=== PATIENT | male | born 1950 | race African-American/Black ===

== ENCOUNTER 2019-05-14 12:21 | Observation (INO) | payer MEDICARE ==
[~2019-05-14] VITALS: Ht 190.5 cm; Wt 125.9 kg
[2019-05-14] MEDS ORDERED: ENTRESTO 49 MG1 EACH PO (12:36)
[2019-05-14] MEDS ORDERED: ASPIRIN81 MG PO (12:36)
[2019-05-14] MEDS ORDERED: LASIX80 MG PO (12:36)
[2019-05-14] MEDS ORDERED: ISOSORBIDE MONO60 M1 PO (12:37)
[2019-05-14] MEDS ORDERED: ZOCOR40 MG PO (12:37)
[2019-05-14] MEDS ORDERED: ELIQUIS5 MG PO (12:37)
[2019-05-14 13:00] VITALS: BP 121/72
[2019-05-14 13:01] LABS: BASOPHILS 0.4 % (0-2); EOSINOPHILS 1.2 % (0-7); HEMATOCRIT 38.2 % (42.0-54.0); HEMOGLOBIN 13.2 g/dL (13.5-17.5); LYMPHOCYTES 15.2 % (15-50); MCH 28.1 pg (26.0-34.0); MCHC 34.6 g/dL (31.0-37.0); MCV 81.3 fL (80.0-100.0); MEAN PLATELET VOLUME 12.4 fL (7.4-10.4); MONOCYTES 6.9 % (2-11); NEUTROPHILS 76.3 % (40-80); PLATELET COUNT 129 10x3/uL (130-400); RDW 15.1 % (11.5-14.5); WBC 5.7 10x3/uL (4.8-10.8)
[2019-05-14 13:13] LABS: CALC OSMOLALITY 276 mosm/kg (275-300); CALCIUM 8.6 mg/dL (8.5-10.1); CARBON DIOXIDE 23.6 mmol/L (21.0-32.0); CHLORIDE - SERUM 102 mmol/L (98-107); CREATININE - SERUM 1.3 mg/dL (0.6-1.3); GLUCOSE 106 mg/dL (74-106); POTASSIUM - SERUM 3.4 mmol/L (3.5-5.1); SODIUM 138 mmol/L (136-145); UREA NITROGEN 15 mg/dL (7-18); eGFR NON AFRICAN AMERICAN 58 mL/min (90-120)
[2019-05-14 13:27] LABS: INR 1.9 (0.85-1.17); PROTIME 21.1 SECONDS (11.6-15.0)
[2019-05-14 13:28] LABS: APTT 48.6 SECONDS (22.8-39.4)
[2019-05-14 13:30] LABS: ALBUMIN 3.5 g/dL (3.4-5.0); ALKALINE PHOSPHATASE 41 U/L (46-116); ALT (SGPT) 14 U/L (10-68); BILIRUBIN - TOTAL 2.62 mg/dL (0.2-1.3); CKMB 0.9 U/L (0.0-3.6); CREATINE KINASE 187 UL (21-232); PRO BNP 2983 pg/mL (0-125); PROTEIN - SERUM 6.9 g/dL (6.4-8.2); TROPONIN-I < 0.017 ng/mL (0.000-0.060)
[2019-05-14 14:00] VITALS: BP 123/81
--- NOTE | 2019-05-14 16:00 | NUR ---
RECEIVED PT TO ROOM 2115 VIA W/C FROM ER DX CHF SALINE LOCK INTACT LT HAND SITE FREE OF REDNESS OR EDEMA TELEMETRY APPLIED SR BBB RATE 60 SL SOB NOTED PT DENIES ANY NEED OR DISCOMFORT AT THIS TIME
[2019-05-14 16:04] VITALS: BP 123/83
[2019-05-14 16:15] VITALS: BP 123/83; BMI 34.7
--- NOTE | 2019-05-14 19:11 | NUR ---
RECIEVED BEDSIDE SHIFT REPORT. ALERT AND ORIETNED X4. UP AD SULAIMAN TO B/R. IV TO LEFT HAND SL.. PACEMAKER TO LEFT CHEST. DENIES ANY NEEDS AT THIS TIME.
[2019-05-14 20:00] VITALS: BP 114/72
[2019-05-15] VITALS (7 sets, daily range): BP systolic 102–120; BP diastolic 62–85; Ht 190.5 cm; Wt 125.9 kg
[2019-05-15 05:40] LABS: ANION GAP 13.1 mmol/L (8-16); BASOPHILS 0.5 % (0-2); CALCIUM 8.6 mg/dL (8.5-10.1); CREATININE - SERUM 1.2 mg/dL (0.6-1.3); HEMATOCRIT 37.7 % (42.0-54.0); HEMOGLOBIN 12.7 g/dL (13.5-17.5); IMMATURE GRANULOCYTES 0.4 % (0-5); LYMPHOCYTES 23.4 % (15-50); MAGNESIUM - SERUM 1.9 mg/dL (1.8-2.4); MCH 28.1 pg (26.0-34.0); MCHC 33.7 g/dL (31.0-37.0); MCV 83.4 fL (80.0-100.0); MEAN PLATELET VOLUME 12.5 fL (7.4-10.4); MONOCYTES 8.6 % (2-11); NEUTROPHILS 65.1 % (40-80); PHOSPHOROUS 3.2 mg/dL (2.5-4.9); PLATELET COUNT 110 10x3/uL (130-400); POTASSIUM - SERUM 3.1 mmol/L (3.5-5.1); RBC 4.52 10x6/uL (4.20-6.10); RDW 15.3 % (11.5-14.5); WBC 5.6 10x3/uL (4.8-10.8)
--- NOTE | 2019-05-15 09:31 | NUR ---
TELEMETRY SR. TX K+ PER PROROCOL. NO C/O C/P NOTED. WILL CONT. PLAN OF CARE.
[2019-05-15 15:15] LABS: % SATURATION 28 % (15-55); IRON 69 ug/dl (35-150); TOTAL IRON BIND CAPACITY 239 ug/dl (260-445); UNSAT IRON BIND CAPACITY 170 ug/dl (150-375)
--- NOTE | 2019-05-15 15:51 | NUR ---
URINE SPECIMEN COLLECTED AND TAKEN TO LAB FOR UA. WILL MONITOR.
[2019-05-15 15:55] LABS: APPEARANCE CLEAR (CLEAR); COLOR YELLOW (YELLOW); GLUCOSE NEGATIVE (NEGATIVE); KETONE NEGATIVE (NEGATIVE); NITRITE NEGATIVE (NEGATIVE); PROTEIN NEGATIVE (NEGATIVE)
[2019-05-15 15:56] LABS: BILIRUBIN NEGATIVE (NEGATIVE)
[2019-05-15 15:57] LABS: BACTERIA FEW /hpf (NEGATIVE); RED CELLS - URINE 0-5 /hpf (0-5); WHITE CELLS - URINE OCC /hpf (NEGATIVE)
[2019-05-16 04:00] VITALS: BP 108/69
--- NOTE | 2019-05-16 06:05 | NUR ---
REHABILITATION SUPERVISOR REPORTED RUN OF V TACH EARLIER. PT ASYMPTOMATIC. AWAKE AND WATCHING TV.DENIES ANY DISCOMFORT AND STATED "I'M FEELING FINE".
--- NOTE | 2019-05-16 07:15 | NUR ---
RECIEVED PT IN BED AAOX4 RESP UNLABORED SKIN W/D COLOR WNL DENIES ANY NEEDS OR DISCOMFORT NAD NNOTED
[2019-05-16 09:00] VITALS: BP 91/52
[2019-05-16 11:46] VITALS: BP 106/58
--- NOTE | 2019-05-16 14:22 | MORECARE ---
CASE MANAGEMENT DISCHARGE SUMMARY PATIENT: ZEYNEP SKY JR UNIT: [id number] ADM DATE: 05/15/19 AGE: 69 : 52 SEX: M ROOM/BED: D.2116 AUTHOR: CARLOS EDUARDO,DOC PHYSICIAN: REFERRING PHYSICIAN: MYRON WILDE MD DATE OF SERVICE: 05/16/19 Discharge Plan Patient Name: ZEYNEP SKY [facility] [facility] 1950 Planned Disposition: Home Anticipated Discharge Date: 05/16/19 Discharge Date: Expected LOS: 1 Initial Reviewer: [email or web address] Initial Review Date: 05/16/2019 Generated: 05/16/19 3:22 pm DCP- Discharge Planning Updated by [email or web address]: Kike Damian on 05/16/19 1:[address] Patient Name: ZEYNEP SKY Admission Status: ER Accout number: [id number] Admission Date: 05-15-2019 : 1950 Admission Diagnosis: Attending: MYRON WILDE Current LOS: 1 Anticipated DC Date: 05-16-2019 Planned Disposition: Home Primary Insurance: [facility] MEDICARE SOLUTIONS Discharge Planning Comments: CM MET WITH PT IN ROOM TO DISCUSS DISCHARGE PLANNING AND NEEDS. 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 PT HAS NO MEDICAL EQUIPMENT AND NO OUTSIDE SERVICES ASSISTING IN THE HOME. CM DISCUSSED AVAILABILITY OF HOME HEALTH, REHAB SERVICES AND MEDICAL EQUIPMENT. PT DENIES DISCHARGE NEEDS, REPORTS HIS MOTHER WILL PICK HIM UP FOR DISCHARGE HOME. MAIL CLERKS SUPERVISOR NURSE NOTIFIED. Events Manager: Kike Damian DCPIA - Discharge Planning Initial Assessment Updated by [email or web address]: Kike Damian on 05/16/19 2:18 pm * Is the patient Alert and Oriented? Yes * How many steps to enter\exit or inside your home? NONE * PCP DR. WETZEL * Pharmacy [facility] [place] * Preadmission Environment Home with Family * ADLs Independent * Equipment None * Other Equipment NO MEDICAL EQUIPMENT PROVIDER PREFERENCE * List name and contact numbers for known caregivers / representatives who currently or will assist patient after discharge: JOSEFA SKY, MOTHER, * Verbal permission to speak to the caregivers and representatives has been obtained from the patient. N/A * Community resources currently utilized None * Please name any agencies selected above. NONE * Additional services required to return to the preadmission environment? No * Can the patient safely return to the preadmission environment? Yes * Has this patient been hospitalized within the prior 30 days at any hospital? No Coverage Notice Reviewer: [id number] Evan Marcelino Notice Issued Date-Time: 05/14/2019 15:01 Notice Type: Medicare Outpatient Observation Notice Notice Delivered To: Patient Relationship to Patient: Depalletizer Operator Name: Delivery Method: HAND - Hand Delivered Jessica Days: Prior Verbal Notification: Recipient Understood Notice: Recipient Signature: Med Rec Note Co-signed by Attending: Coverage Notice Comment: Patient Name: ZEYNEP SKY Page [id number] at 1422 All edits/amendments must be made on the electronic document DICTATION DATE: 05/16/191421 CARCASS SPLITTER: IVANA 05/16/191421 RPT#: [id number] DC DATE: STATUS: ADM IN [facility] [address] [place] [address] END OF REPORT
--- NOTE | 2019-05-16 15:14 | NUR ---
PT DISCHARGED. INSTRUCTIONS GIVEN AND IV DCD. TO PRIVATE CAR PER WHEELCHAIR
--- NOTE | 2019-05-17 11:58 | NUR ---
I CALLED [facility] IN [place] FOR ELIQUIS 5 MG # 60 BID.
== END 2019-05-16 15:15 | disposition home or self-care (01) ==
LOC: D.ER 12:21 → D.M2 14:41 → OBSVTIME 15:06 → D.M2 05-15 18:49
PROVIDERS: Family Medicine; ADMIT Internal Medicine Nephrology; ATTEND Internal Medicine Nephrology
DX: I11.0 Hypertensive heart disease with heart failure (principal); I50.23 Acute on chronic systolic (congestive) heart failure; D64.9 Anemia, unspecified; D69.6 Thrombocytopenia, unspecified; E87.6 Hypokalemia; E78.5 Hyperlipidemia, unspecified; I42.9 Cardiomyopathy, unspecified

== ENCOUNTER 2019-11-28 10:14 | Inpatient (IN) | payer MEDICARE ==
[~2019-11-28] VITALS: Ht 190.5 cm; Wt 134.3 kg
[~2019-11-28 10:14] MED LIST: ASPIRIN81 MG PO; ELIQUIS5 MG PO; ENTRESTO 49 MG1 EACH PO; ISOSORBIDE MONO60 M1 PO; LASIX80 MG PO; ZOCOR40 MG PO
[2019-11-28] MEDS ORDERED: TORSEMIDE20 MG PO (10:19)
[2019-11-28] MEDS ORDERED: XARELTO20 MG PO (10:21)
[2019-11-28] MEDS ORDERED: LIPITOR20 MG PO (10:21)
[2019-11-28] MEDS ORDERED: METOPROLOL TART50 MG PO (10:22)
--- NOTE | 2019-11-28 10:25 | NUR ---
BLADDER SCANNER = 163 ML
[2019-11-28 10:30] VITALS: BP 92/57
[2019-11-28 10:47] LABS: BASOPHILS 0.3 % (0-2); EOSINOPHILS 0.6 % (0-7); HEMOGLOBIN 13.9 g/dL (13.5-17.5); IMMATURE GRANULOCYTES 0.1 % (0-5); LYMPHOCYTES 10.1 % (15-50); MCH 27.5 pg (26.0-34.0); MCHC 33.1 g/dL (31.0-37.0); MEAN PLATELET VOLUME 11.8 fL (7.4-10.4); NEUTROPHILS 78.9 % (40-80); RBC 5.06 10x6/uL (4.20-6.10); RDW 16.8 % (11.5-14.5); WBC 6.8 10x3/uL (4.8-10.8)
[2019-11-28 10:52] LABS: PLATELET COUNT 176 10x3/uL (130-400)
[2019-11-28 11:00] LABS: CALC OSMOLALITY 294 mosm/kg (275-300); CALCIUM 8.6 mg/dL (8.5-10.1); CARBON DIOXIDE 22.9 mmol/L (21.0-32.0); CHLORIDE - SERUM 106 mmol/L (98-107); GLUCOSE 108 mg/dL (74-106); POTASSIUM - SERUM 3.7 mmol/L (3.5-5.1); SODIUM 142 mmol/L (136-145); UREA NITROGEN 43 mg/dL (7-18); eGFR NON AFRICAN AMERICAN 35 mL/min (90-120)
[2019-11-28 11:18] LABS: ALBUMIN 3.6 g/dL (3.4-5.0); ALKALINE PHOSPHATASE 31 U/L (30-120); ALT (SGPT) 118 U/L (10-68); BILIRUBIN - TOTAL 1.52 mg/dL (0.2-1.3); CKMB 1.3 U/L (0.0-3.6); CREATINE KINASE 95 UL (21-232); PRO BNP 7871 pg/mL (0-125); PROTEIN - SERUM 6.3 g/dL (6.4-8.2); TROPONIN-I 0.032 ng/mL (0.000-0.060)
[2019-11-28 11:19] LABS: INR 5.75 (0.85-1.17); PROTIME 50.5 SECONDS (11.6-15.0)
[2019-11-28 11:30] VITALS: BP 93/64
[2019-11-28 12:30] VITALS: BP 100/72
[2019-11-28 13:30] VITALS: BP 96/72
[2019-11-28 14:48] VITALS: BMI 35.0
[2019-11-28 18:25] LABS: CKMB 1.2 U/L (0.0-3.6); CREATINE KINASE 91 UL (21-232); TROPONIN-I 0.025 ng/mL (0.000-0.060)
--- NOTE | 2019-11-28 19:31 | NUR ---
PATIENT IS ALERT AND ORIENTED, RESTING COMFORTABLY IN BED. RESPIRATIONS ARE EVEN AND UNLABORED. NO S/S OF DISTRESS. NO C/O PAIN. CALL LIGHT WITHIN REACH. WILL CPOC.
[2019-11-28 19:47] VITALS: BP 104/69
[2019-11-28 23:17] LABS: CKMB 0.8 U/L (0.0-3.6); CREATINE KINASE 71 UL (21-232); TROPONIN-I 0.028 ng/mL (0.000-0.060)
[2019-11-29 00:26] VITALS: BP 80/51
[2019-11-29 03:57] VITALS: BP 86/59
[2019-11-29 07:21] LABS: BASOPHILS 0.3 % (0-2); EOSINOPHILS 0.8 % (0-7); HEMATOCRIT 40.7 % (42.0-54.0); HEMOGLOBIN 13.3 g/dL (13.5-17.5); IMMATURE GRANULOCYTES 0.3 % (0-5); LYMPHOCYTES 14.8 % (15-50); MCH 27.1 pg (26.0-34.0); MCHC 32.7 g/dL (31.0-37.0); MCV 82.9 fL (80.0-100.0); MONOCYTES 11.7 % (2-11); NEUTROPHILS 72.1 % (40-80); PLATELET COUNT 163 10x3/uL (130-400); RBC 4.91 10x6/uL (4.20-6.10); RDW 16.8 % (11.5-14.5); WBC 7.4 10x3/uL (4.8-10.8)
[2019-11-29 07:49] LABS: ALBUMIN 3.5 g/dL (3.4-5.0); ALKALINE PHOSPHATASE 36 U/L (30-120); ALT (SGPT) 102 U/L (10-68); BILIRUBIN - TOTAL 1.28 mg/dL (0.2-1.3); CALC OSMOLALITY 294 mosm/kg (275-300); CALCIUM 8.6 mg/dL (8.5-10.1); CARBON DIOXIDE 23.1 mmol/L (21.0-32.0); CHLORIDE - SERUM 106 mmol/L (98-107); CKMB 1.2 U/L (0.0-3.6); CREATINE KINASE 66 UL (21-232); CREATININE - SERUM 2.2 mg/dL (0.6-1.3); GLUCOSE 111 mg/dL (74-106); POTASSIUM - SERUM 3.5 mmol/L (3.5-5.1); PROTEIN - SERUM 6.1 g/dL (6.4-8.2); SODIUM 141 mmol/L (136-145); TROPONIN-I 0.045 ng/mL (0.000-0.060); UREA NITROGEN 48 mg/dL (7-18); eGFR NON AFRICAN AMERICAN 32 mL/min (90-120)
[2019-11-29 09:00] VITALS: BP 89/63
[2019-11-29 12:00] VITALS: BP 86/58
[2019-11-29 16:47] VITALS: BP 89/59
--- NOTE | 2019-11-29 19:23 | NUR ---
PT ASKED FOR ICE WATER NO OTHER NEEDS BED LOW AND LOCKED AND CALL LIGHT IS WITH PT
[2019-11-29 19:48] VITALS: BP 97/64
[2019-11-30 00:12] VITALS: BP 101/55
[2019-11-30 04:55] VITALS: BP 97/63
--- NOTE | 2019-11-30 05:38 | NUR ---
ALERTED THAT HEART RATE 140s CHECKED ON PT DENIED PROBLEMS DENIED SOB..PAPABLE PULSE IS 80...I NOTED HIGH PACER BEATS ON MONITOR
[2019-11-30 06:15] LABS: BASOPHILS 0.3 % (0-2); EOSINOPHILS 1.3 % (0-7); HEMATOCRIT 38.9 % (42.0-54.0); HEMOGLOBIN 12.7 g/dL (13.5-17.5); IMMATURE GRANULOCYTES 0.1 % (0-5); LYMPHOCYTES 14.5 % (15-50); MCH 26.8 pg (26.0-34.0); MCHC 32.6 g/dL (31.0-37.0); MCV 82.2 fL (80.0-100.0); MEAN PLATELET VOLUME 12.7 fL (7.4-10.4); MONOCYTES 8.2 % (2-11); NEUTROPHILS 75.6 % (40-80); PLATELET COUNT 150 10x3/uL (130-400); RBC 4.73 10x6/uL (4.20-6.10); RDW 16.6 % (11.5-14.5); WBC 6.8 10x3/uL (4.8-10.8)
[2019-11-30 06:31] LABS: ANION GAP 13.7 mmol/L (8-16); CALCIUM 8.1 mg/dL (8.5-10.1); CARBON DIOXIDE 24.6 mmol/L (21.0-32.0); POTASSIUM - SERUM 3.3 mmol/L (3.5-5.1)
[2019-11-30 06:32] LABS: CREATININE - SERUM 1.5 mg/dL (0.6-1.3)
[2019-11-30 09:53] VITALS: BP 104/61
[2019-11-30 10:22] LABS: INR 1.94 (0.85-1.17); PROTIME 21.9 SECONDS (11.6-15.0)
[2019-11-30 13:33] VITALS: BP 105/69
--- NOTE | 2019-11-30 17:50 | NUR ---
GEORGE CATH WITH LIGHT RED COLOR AND FINE SEDIMENT PT REPORTED EARLIER THIS SHIFT THAT HE HAD AN ACUTE EPSIODE OF PAIN AND SENSATION OF CATH NOT EMPTUNG BLADDER THIS RESOLVED AFTER SMALL CLOT PASSED THROUGH GEORGE TUBE. SINCE THEN URINE HAS BEEN DARK NIKOLAI TO LIGHT RED. AWARE WILL COTOLGANUE TO MONITOR.
[2019-11-30 20:00] VITALS: BP 122/68
[2019-12-01 04:00] VITALS: BP 110/71
[2019-12-01 05:57] LABS: ANION GAP 11.6 mmol/L (8-16); CALCIUM 8.2 mg/dL (8.5-10.1); CARBON DIOXIDE 23.9 mmol/L (21.0-32.0); CREATININE - SERUM 1.2 mg/dL (0.6-1.3); POTASSIUM - SERUM 3.5 mmol/L (3.5-5.1)
[2019-12-01 06:58] LABS: BASOPHILS 0.3 % (0-2); EOSINOPHILS 1.8 % (0-7); HEMATOCRIT 37.2 % (42.0-54.0); HEMOGLOBIN 12.5 g/dL (13.5-17.5); IMMATURE GRANULOCYTES 0.2 % (0-5); LYMPHOCYTES 13.3 % (15-50); MCH 27.4 pg (26.0-34.0); MCHC 33.6 g/dL (31.0-37.0); MCV 81.6 fL (80.0-100.0); MEAN PLATELET VOLUME 11.7 fL (7.4-10.4); MONOCYTES 11.2 % (2-11); NEUTROPHILS 73.2 % (40-80); PLATELET COUNT 129 10x3/uL (130-400); RBC 4.56 10x6/uL (4.20-6.10); RDW 16.5 % (11.5-14.5); WBC 6.2 10x3/uL (4.8-10.8)
[2019-12-01 09:14] VITALS: BP 100/67
--- NOTE | 2019-12-01 10:48 | NUR ---
URINE SPECIMEN COLLECTED AND TAKEN TO LAB. WILL MONITOR.
[2019-12-01 11:49] LABS: INR 1.37 (0.85-1.17); PROTIME 16.7 SECONDS (11.6-15.0)
[2019-12-01 11:52] LABS: BILIRUBIN NEGATIVE (NEGATIVE); GLUCOSE NEGATIVE (NEGATIVE); KETONE NEGATIVE (NEGATIVE); NITRITE NEGATIVE (NEGATIVE); SPECIFIC GRAVITY 1.015 (1.005-1.020); UROBILINOGEN 12 mg/dL (NORMAL)
[2019-12-01 11:53] LABS: RED CELLS - URINE >50 /hpf (0-5)
[2019-12-01 11:54] LABS: EPITHELIAL CELLS 0-5 /hpf (0-5)
--- NOTE | 2019-12-01 11:56 | NUR ---
UP IN CHAIR WITH CALL LIGHT IN REACH. TELEMETRY FLUTTER HR 140. WILL CONT. TO MONITOR.
[2019-12-01 13:45] VITALS: BP 99/63
[2019-12-01 16:57] VITALS: BP 110/76
--- NOTE | 2019-12-01 18:54 | NUR ---
RECEIVED BEDSDIE REPORT. PATIENT IS ALERT AND ORIENTED, RESTING COMFORTABLY IN BED. RESPIRATIONS ARE EVEN AND UNLABORED. NO S/S OF DISTRESS. NO C/O PAIN. CALL LIGHT WITHIN REACH. WILL CPOC.
[2019-12-01 20:00] VITALS: BP 103/74
[2019-12-02] VITALS: BP 142/88
[2019-12-02 04:00] VITALS: BP 115/78
[2019-12-02 05:00] LABS: BASOPHILS 0.3 % (0-2); EOSINOPHILS 2.5 % (0-7); HEMATOCRIT 38.3 % (42.0-54.0); HEMOGLOBIN 12.4 g/dL (13.5-17.5); IMMATURE GRANULOCYTES 0.2 % (0-5); LYMPHOCYTES 14.8 % (15-50); MCH 26.8 pg (26.0-34.0); MCHC 32.4 g/dL (31.0-37.0); MCV 82.7 fL (80.0-100.0); MEAN PLATELET VOLUME 11.8 fL (7.4-10.4); MONOCYTES 11.3 % (2-11); NEUTROPHILS 70.9 % (40-80); PLATELET COUNT 150 10x3/uL (130-400); RBC 4.63 10x6/uL (4.20-6.10); RDW 16.7 % (11.5-14.5); WBC 6.1 10x3/uL (4.8-10.8)
[2019-12-02 05:15] LABS: ANION GAP 11.2 mmol/L (8-16); CALCIUM 8.5 mg/dL (8.5-10.1); CREATININE - SERUM 1.4 mg/dL (0.6-1.3); INR 1.25 (0.85-1.17); POTASSIUM - SERUM 4.2 mmol/L (3.5-5.1); PROTIME 15.6 SECONDS (11.6-15.0)
--- NOTE | 2019-12-02 06:28 | NUR ---
PATIENT GIVEN 2 CARTONS ON PRUNE JUICE. PATIENT STATES "DIFFICULTY HAVING BOWEL MOVEMENT". PATIENT SAYS HE IS NOT HAVING A PROBLEM PASSING GAS.
--- NOTE | 2019-12-02 07:15 | NUR ---
RECEIVED PT IN BED AAOX4 RESP UNLABORED SKIN W/D COLOR WNL F/C PATENT WITH CRANBERRY COLORED CLEAR URINE IN DRAINAGE BAG PT DENIES ANY NEEDS OR DISCOMFORT
[2019-12-02 08:42] VITALS: BP 117/75
[2019-12-02 12:46] VITALS: Ht 190.5 cm; Wt 134.3 kg
--- NOTE | 2019-12-02 13:11 | MORECARE ---
CASE MANAGEMENT DISCHARGE SUMMARY PATIENT: ZEYNEP SKY JR UNIT: [id number] ADM DATE: 11/28/19 AGE: 69 : 52 SEX: M ROOM/BED: D.2113 AUTHOR: JOESPH THIBODEAUX PHYSICIAN: REFERRING PHYSICIAN: MYRON WILDE MD DATE OF SERVICE: 12/02/19 Discharge Plan Patient Name: ZEYNEP SKY [facility] [facility] 1950 Planned Disposition: Home with Home Health Anticipated Discharge Date: Discharge Date: Expected LOS: Initial Reviewer: [email or web address] Initial Review Date: 12/02/2019 Generated: 12/02/19 2:10 pm DCPIA - Discharge Planning Initial Assessment Updated by [email or web address]: April Faith on 12/02/19 1:10 pm * Is the patient Alert and Oriented? Yes * How many steps to enter\exit or inside your home? 0/0 * PCP Dr. Esteves in [place] * Pharmacy [facility] in [place] * Preadmission Environment Home with Family * ADLs Independent * Equipment None * List name and contact numbers for known caregivers / representatives who currently or will assist patient after discharge: Molly Sky - mother - [phone] * Verbal permission to speak to the caregivers and representatives has been obtained from the patient. Yes * Community resources currently utilized None * Additional services required to return to the preadmission environment? Yes * Can the patient safely return to the preadmission environment? Yes * Has this patient been hospitalized within the prior 30 days at any hospital? Yes Patient Name: ZEYNEP SKY Page [phone] at 1311 All edits/amendments must be made on the electronic document DICTATION DATE: 12/02/19 1310 MANGLE PRESS CATCHER: IVANA 12/02/19 1310 RPT#: [id number] DC DATE: STATUS: ADM IN [facility] [address] [place] [address] END OF REPORT
[2019-12-02 13:21] VITALS: BP 100/57
--- NOTE | 2019-12-02 13:31 | MORECARE ---
CASE MANAGEMENT DISCHARGE SUMMARY PATIENT: ZEYNEP SKY JR UNIT: [id number] ADM DATE: 11/28/19 AGE: 69 : 52 SEX: M ROOM/BED: D.2113 AUTHOR: CARLOS EDUARDO,DOC PHYSICIAN: REFERRING PHYSICIAN: MYRON WILDE MD DATE OF SERVICE: 12/02/19 Discharge Plan Patient Name: ZEYNEP SKY Facility: [facility]:[place] : 1950 Planned Disposition: Home with Home Health Anticipated Discharge Date: Discharge Date: Expected LOS: Initial Reviewer: [email or web address] Initial Review Date: 12/02/2019 Generated: 12/02/19 2:31 pm Comments DCP- Discharge Planning Updated by [email or web address]: April Faith on 12/02/19 12:[address] Patient Name: ZEYNEP SKY Admission Status: ER Accout number: [id number] Admission Date: 11-28-2019 : 1950 Admission Diagnosis:DYSPNEA, UNSPECIFIED Attending: MYRON WILDE Current LOS: 4 Anticipated DC Date: Planned Disposition: Home with Home Health Primary Insurance: [facility] MEDICARE SOLUTIONS Discharge Planning Comments: CM met with patient to discuss discharge planning/needs. I verified his home address and phone number per face sheet. He states he lives with his mother. States he is independent with all ADL's and IADL's. He states he would like home health on discharge to assist with medication management and vital sign checks. TERESA for [facility] signed. He declines need for DM. States he may need a taxi ride home or he can try and find someone when he is discharged. I faxed order and clinical to [facility]. CM will continue to follow and assist with discharge planning/needs. Railroad Wheels And Axles Inspector: April Faith DCPIA - Discharge Planning Initial Assessment Updated by [email or web address]: April Faith on 12/02/19 1:10 pm * Is the patient Alert and Oriented? Yes * How many steps to enter\exit or inside your home? 0/0 * PCP Dr. Esteves in [place] * Pharmacy [facility] in [place] * Preadmission Environment Home with Family * ADLs Independent * Equipment None * List name and contact numbers for known caregivers / representatives who currently or will assist patient after discharge: Molly Sky - mother - [phone] * Verbal permission to speak to the caregivers and representatives has been obtained from the patient. Yes * Community resources currently utilized None * Additional services required to return to the preadmission environment? Yes * Can the patient safely return to the preadmission environment? Yes * Has this patient been hospitalized within the prior 30 days at any hospital? Yes Last DP export: 12/02/19 12:11 p Patient Name: ZEYNEP SKY Page [phone] at 1331 All edits/amendments must be made on the electronic document DICTATION DATE: 12/02/19 1331 FUR BLENDER: IVANA 12/02/19 1331 RPT#: [id number] DC DATE: STATUS: ADM IN [facility] [address] [place] [address] END OF REPORT
--- NOTE | 2019-12-02 13:43 | MORECARE ---
CASE MANAGEMENT DISCHARGE SUMMARY PATIENT: ZEYNEP SKY JR UNIT: [id number] ADM DATE: 11/28/19 AGE: 69 : 52 SEX: M ROOM/BED: D.2113 AUTHOR: CARLOS EDUARDO,DOC PHYSICIAN: REFERRING PHYSICIAN: MYRON WILDE MD DATE OF SERVICE: 12/02/19 Discharge Plan Patient Name: ZEYNEP SKY Facility: [facility]:[place] : 1950 Planned Disposition: Home with Home Health Anticipated Discharge Date: Discharge Date: Expected LOS: Initial Reviewer: [email or web address] Initial Review Date: 12/02/2019 Generated: 12/02/19 2:43 pm Comments DCP- Discharge Planning Updated by [email or web address]: April Faith on 12/02/19 12:[address] Patient Name: ZEYNEP SKY Admission Status: ER Accout number: [id number] Admission Date: 11-28-2019 : 1950 Admission Diagnosis:DYSPNEA, UNSPECIFIED Attending: MYRON WILDE Current LOS: 4 Anticipated DC Date: Planned Disposition: Home with Home Health Primary Insurance: [facility] MEDICARE SOLUTIONS Discharge Planning Comments: CM met with patient to discuss discharge planning/needs. I verified his home address and phone number per face sheet. He states he lives with his mother. States he is independent with all ADL's and IADL's. He states he would like home health on discharge to assist with medication management and vital sign checks. TERESA for [facility] signed. He declines need for DM. States he may need a taxi ride home or he can try and find someone when he is discharged. I faxed order and clinical to [facility]. CM will continue to follow and assist with discharge planning/needs. Station Supervisor: April Faith DCPIA - Discharge Planning Initial Assessment Updated by [email or web address]: April Faith on 12/02/19 1:10 pm * Is the patient Alert and Oriented? Yes * How many steps to enter\exit or inside your home? 0/0 * PCP Dr. Esteves in [place] * Pharmacy [facility] in [place] * Preadmission Environment Home with Family * ADLs Independent * Equipment None * List name and contact numbers for known caregivers / representatives who currently or will assist patient after discharge: Molly Sky - mother - [phone] * Verbal permission to speak to the caregivers and representatives has been obtained from the patient. Yes * Community resources currently utilized None * Additional services required to return to the preadmission environment? Yes * Can the patient safely return to the preadmission environment? Yes * Has this patient been hospitalized within the prior 30 days at any hospital? Yes External Providers External [facility] Next Contact Date: Service Request Date: Service Type: Resolution: Reviewer: Comments: Last DP export: 12/02/19 12:31 p Patient Name: ZEYNEP SKY Page [phone] at 1343 All edits/amendments must be made on the electronic document DICTATION DATE: 12/02/19 1343 VICE PRESIDENT RISK MANAGEMENT: IVANA 12/02/19 1343 RPT#: [id number] DC DATE: STATUS: ADM IN [facility] [address] [place] [address] END OF REPORT
[2019-12-02 17:31] VITALS: BP 85/61
[2019-12-02 20:30] VITALS: BP 108/69
--- NOTE | 2019-12-02 22:09 | NUR ---
INITIAL ROUNDS COMPLETED AT 191O HRS. PT COUGHING UP WHITE NUCOUS. IV TO LAC INFILTRATED. DC'D WITH CATHETER INTACT. NEW IV STARTED #20 TO RFA BY Fani QUICK RN. PT TOLERATED ACTIVITY WELL. ASSESSMENT COMPLETED AT 1950 HRS. VSS. ALERT AND ORIENTED TO PERSON, PLACE AND TIME. YANG. A-FLUTTER/PACED RHYTHM PER CM HR 79. LUNGS DIMINISHED IN BASES BILAT. YANG. PALPABLE PERIPHERAL PULSES. PM MEDS GIVEN PER ORDERS. PT CURRENTLY WATCHING TV. NO DISTRESS NOTED. SR UP X1, CALL LIGHT WITHIN REACH.
--- NOTE | 2019-12-03 00:12 | NUR ---
PTRESTING WITH EYES CLOSED. RESP EVEN AND REGULAR. SR UP X2, CALL LIGHT WITHIN REACH.
--- NOTE | 2019-12-03 02:28 | NUR ---
PT RESTING WITH EYES CLOSED. RESP EVEN AND REGULAR. SR UP X2, CALL LIGHT WITHIN REACH.
[2019-12-03 04:30] VITALS: BP 102/57
--- NOTE | 2019-12-03 04:39 | NUR ---
PT SITTING UP IN THE CHAIR. DENIES ANY DISCOMFORT OR NEEDS. CALL LIGHT WITHIN REACH.
[2019-12-03 04:45] LABS: BASOPHILS 0.4 % (0-2); EOSINOPHILS 3.6 % (0-7); HEMATOCRIT 39.1 % (42.0-54.0); HEMOGLOBIN 12.9 g/dL (13.5-17.5); IMMATURE GRANULOCYTES 0.4 % (0-5); LYMPHOCYTES 16.4 % (15-50); MCH 27.3 pg (26.0-34.0); MCV 82.8 fL (80.0-100.0); MEAN PLATELET VOLUME 11.4 fL (7.4-10.4); MONOCYTES 10.8 % (2-11); NEUTROPHILS 68.4 % (40-80); PLATELET COUNT 141 10x3/uL (130-400); RBC 4.72 10x6/uL (4.20-6.10); RDW 16.7 % (11.5-14.5)
[2019-12-03 05:35] LABS: ANION GAP 13.6 mmol/L (8-16); CALCIUM 8.5 mg/dL (8.5-10.1); CARBON DIOXIDE 22.4 mmol/L (21.0-32.0); CREATININE - SERUM 1.5 mg/dL (0.6-1.3)
--- NOTE | 2019-12-03 06:10 | NUR ---
VSS THROUGHOUT NIGHT. SR PER CM. PT DENIED ANY DISCOMFORT. NEEDS MET; WILL CONTINUE TO MONITOR.
--- NOTE | 2019-12-03 08:30 | NUR ---
AM MEDS GIVEN AT THIS TIME. PT UP TO CHAIR, A/O X4, RESP EVEN AND NONLABORED ON RA. RT FA IV SL. MONITOR SHOWING FLUTTER WITH RATE OF 139. GEORGE DRAINING YELLOW URINE TO GRAVITY. PT DENIES ANY NEEDS AT THIS TIME. CALL LIGHT IN REACH, NAD NOTED,MICHELLE CONTINUE TO MONITOR.
[2019-12-03 10:14] VITALS: BP 127/74
[2019-12-03 11:51] LABS: DIGOXIN 1.36 ng/mL (0.90-2.00); MAGNESIUM - SERUM 2.2 mg/dL (1.8-2.4)
[2019-12-03] MEDS ORDERED: FLOMAX0.4 MG PO (13:57)
[2019-12-03] MEDS ORDERED: AMIODARONE HCL200 MG PO (13:59)
[2019-12-03] MEDS ORDERED: TOPROL XL25 MG PO (13:59)
[2019-12-03] MEDS ORDERED: LASIX80 MG PO (14:08)
[2019-12-03] MEDS ORDERED: LANOXIN IN0.5 MG/2 M PO (14:33)
--- NOTE | 2019-12-03 14:42 | MORECARE ---
CASE MANAGEMENT DISCHARGE SUMMARY PATIENT: ZEYNEP SKY JR UNIT: [id number] ADM DATE: 11/28/19 AGE: 69 : 52 SEX: M ROOM/BED: D.2113 AUTHOR: CARLOS EDUARDODOC PHYSICIAN: REFERRING PHYSICIAN: MYRON WILDE MD DATE OF SERVICE: 12/03/19 Discharge Plan Patient Name: ZEYNEP SKY Facility: [facility]:[place] : 1950 Planned Disposition: Home with Home Health Anticipated Discharge Date: Discharge Date: Expected LOS: Initial Reviewer: [email or web address] Initial Review Date: 12/02/2019 Generated: 12/03/19 3:41 pm Comments DCP- Discharge Planning Updated by [id number]: Pam Dumont on 12/03/19 1:[address] PATIENT IS BEING DISCHARGED HOME TODAY WITH [employer] [facility], HE HAS A FOUND TRANSPORTATION. IMM SERVED AND EXPLAINED. CM WILL CONTACT [employer] [facility] AND LET THEM KNOW OF DISCHARGE DCP- Discharge Planning Updated by [id number]: April Faith on 12/02/19 12:[address] Patient Name: ZEYNEP SKY Admission Status: ER Accout number: [id number] Admission Date: 11-28-2019 : 1950 Admission Diagnosis:DYSPNEA, UNSPECIFIED Attending: MYRON WILDE Current LOS: 4 Anticipated DC Date: Planned Disposition: Home with Home Health Primary Insurance: [facility] MEDICARE SOLUTIONS Discharge Planning Comments: CM met with patient to discuss discharge planning/needs. I verified his home address and phone number per face sheet. He states he lives with his mother. States he is independent with all ADL's and IADL's. He states he would like home health on discharge to assist with medication management and vital sign checks. TERESA for [facility] signed. He declines need for DM. States he may need a taxi ride home or he can try and find someone when he is discharged. I faxed order and clinical to [facility]. CM will continue to follow and assist with discharge planning/needs. Sheet Metal Fabricator: April Faith DCPIA - Discharge Planning Initial Assessment Updated by [id number]: April Faith on 12/02/19 1:10 pm * Is the patient Alert and Oriented? Yes * How many steps to enter\exit or inside your home? 0/0 * PCP Dr. Esteves in [place] * Pharmacy [facility] in [place] * Preadmission Environment Home with Family * ADLs Independent * Equipment None * List name and contact numbers for known caregivers / representatives who currently or will assist patient after discharge: Molly Sky - mother - [phone] * Verbal permission to speak to the caregivers and representatives has been obtained from the patient. Yes * Community resources currently utilized None * Additional services required to return to the preadmission environment? Yes * Can the patient safely return to the preadmission environment? Yes * Has this patient been hospitalized within the prior 30 days at any hospital? Yes Coverage Notice Reviewer: [id number] - April Faith Notice Issued Date-Time: 12/02/2019 13:44 Notice Type: Patient Choice Letter Notice Delivered To: Patient Relationship to Patient: Self Violin Tutor Name: Delivery Method: HAND - Hand Delivered Jessica Days: Prior Verbal Notification: Recipient Understood Notice: Yes Recipient Signature: Yes Med Rec Note Co-signed by Attending: Coverage Notice Comment: TERESA FOR [facility] Reviewer: [id number] - Pam Dumont Notice Issued Date-Time: 12/03/2019 14:30 Notice Type: IM Discharge Notice Notice Delivered To: Patient Relationship to Patient: Violin Tutor Name: Delivery Method: HAND - Hand Delivered Jessica Days: Prior Verbal Notification: Recipient Understood Notice: Yes Recipient Signature: Yes Med Rec Note Co-signed by Attending: Coverage Notice Comment: IMM SERVED AND EXPLAINED Last DP export: 12/02/19 12:43 p Patient Name: ZEYNEP SKY Page [phone] at 1442 All edits/amendments must be made on the electronic document DICTATION DATE: 12/03/19 1441 TUBULAR SPLITTING MACHINE TENDER: IVANA 12/03/19 1441 RPT#: [id number] DC DATE: STATUS: ADM IN [place] [address] [place] [address] END OF REPORT
--- NOTE | 2019-12-03 14:49 | NUR ---
CONFIRMED PER DR MOTA THAT PT IS TO BE ON DIGOXIN. ADDED TO MEDICATION LIST AND CALLED TO [facility] IN [place], SPOKE WITH WILL, PHARMACIST.
--- NOTE | 2019-12-03 14:59 | NUR ---
PROVIDED VERBAL AND WRITTEN DISHCARGE TEACHING TO PT WHO VERBALIZED UNDERSTANDING REGARDING TEACHING. D/C RT FA IV WITH CATHETER TIP INTACT. HEART MONITOR REMOVED AND TAKE TO BLUE LINE TRIMMER. PT WAITING ON RIDE, WILL NOTIFY THIS NURSE WHEN READY FOR WHEELCHAIR.
--- NOTE | 2019-12-03 15:41 | NUR ---
PT LEFT UNIT VIA WHEELCHAIR, WITH ALL BELONGINGS, NAD NOTED.
--- NOTE | 2019-12-05 16:29 | MORECARE ---
CASE MANAGEMENT DISCHARGE SUMMARY PATIENT: ZEYNEP SKY JR UNIT: [id number] ADM DATE: 11/28/19 AGE: 69 : 52 SEX: M ROOM/BED: D.2113 AUTHOR: CARLOS EDUARDO,DOC PHYSICIAN: REFERRING PHYSICIAN: MYRON WILDE MD DATE OF SERVICE: 12/05/19 Discharge Plan Patient Name: ZEYNEP SKY Facility: [facility]:[place] : 1950 Planned Disposition: Home with Home Health Anticipated Discharge Date: Discharge Date: 12/03/2019 Expected LOS: 0 Initial Reviewer: [email or web address] Initial Review Date: 12/02/2019 Generated: 12/05/19 5:29 pm Comments DCP- Discharge Planning Updated by [email or web address]: Pam Dumont on 12/03/19 1:[address] PATIENT IS BEING DISCHARGED HOME TODAY WITH [facility], HE HAS A FOUND TRANSPORTATION. IMM SERVED AND EXPLAINED. CM WILL CONTACT [facility] AND LET THEM KNOW OF DISCHARGE DCP- Discharge Planning Updated by [email or web address]: April Faith on 12/02/19 12:[address] Patient Name: ZEYNEP SKY Admission Status: ER Accout number: [id number] Admission Date: 11-28-2019 : 1950 Admission Diagnosis:DYSPNEA, UNSPECIFIED Attending: MYRON WILDE Current LOS: 4 Anticipated DC Date: Planned Disposition: Home with Home Health Primary Insurance: [facility] MEDICARE SOLUTIONS Discharge Planning Comments: CM met with patient to discuss discharge planning/needs. I verified his home address and phone number per face sheet. He states he lives with his mother. States he is independent with all ADL's and IADL's. He states he would like home health on discharge to assist with medication management and vital sign checks. TERESA for [facility] signed. He declines need for DM. States he may need a taxi ride home or he can try and find someone when he is discharged. I faxed order and clinical to [facility]. CM will continue to follow and assist with discharge planning/needs. Assistant Brand Manager: April Faith DCPIA - Discharge Planning Initial Assessment Updated by [id number]: April Faith on 12/02/19 1:10 pm * Is the patient Alert and Oriented? Yes * How many steps to enter\exit or inside your home? 0/0 * PCP Dr. Esteves in [place] * Pharmacy [facility] in [place] * Preadmission Environment Home with Family * ADLs Independent * Equipment None * List name and contact numbers for known caregivers / representatives who currently or will assist patient after discharge: Molly Sky - mother - [phone] * Verbal permission to speak to the caregivers and representatives has been obtained from the patient. Yes * Community resources currently utilized None * Additional services required to return to the preadmission environment? Yes * Can the patient safely return to the preadmission environment? Yes * Has this patient been hospitalized within the prior 30 days at any hospital? Yes Coverage Notice Reviewer: [id number] Evan Faith Notice Issued Date-Time: 12/02/2019 13:44 Notice Type: Patient Choice Letter Notice Delivered To: Patient Relationship to Patient: Self Electronic Security Technician Name: Delivery Method: HAND - Hand Delivered Jessica Days: Prior Verbal Notification: Recipient Understood Notice: Yes Recipient Signature: Yes Med Rec Note Co-signed by Attending: Coverage Notice Comment: TERESA FOR [facility] Reviewer: [id number] Evan Dumont Notice Issued Date-Time: 12/03/2019 14:30 Notice Type: IM Discharge Notice Notice Delivered To: Patient Relationship to Patient: Electronic Security Technician Name: Delivery Method: HAND - Hand Delivered Jessica Days: Prior Verbal Notification: Recipient Understood Notice: Yes Recipient Signature: Yes Med Rec Note Co-signed by Attending: Coverage Notice Comment: IMM SERVED AND EXPLAINED Last DP export: 12/03/19 1:42 p Patient Name: ZEYNEP SKY Page 25041 at 1629 All edits/amendments must be made on the electronic document DICTATION DATE: 12/05/19 162 SUPERVISOR TELLERS: IVANA 12/05/19 1629 RPT#: [id number] DC DATE:12/03/19 STATUS: DIS IN [place] [id number] [place] [address] END OF REPORT
== END 2019-12-03 15:42 | disposition home health service (06) | DRG 682 ==
LOC: D.ER 10:14 → D.M2 12:17
PROVIDERS: Family Medicine; Internal Medicine Cardiovascular Disease; ADMIT Internal Medicine Nephrology; ATTEND Internal Medicine Nephrology
DX: N17.9 Acute kidney failure, unspecified (principal); I50.23 Acute on chronic systolic (congestive) heart failure; I42.9 Cardiomyopathy, unspecified; I48.92 Unspecified atrial flutter; T45.511A Poisoning by anticoagulants, accidental (unintentional), initial encounter; I48.91 Unspecified atrial fibrillation; D64.9 Anemia, unspecified; D69.6 Thrombocytopenia, unspecified; E87.6 Hypokalemia; E78.5 Hyperlipidemia, unspecified; I11.0 Hypertensive heart disease with heart failure; T50.2X1A Poisoning by carbonic-anhydrase inhibitors, benzothiadiazides and other diuretics, accidental (unintentional), initial encounter; T46.6X1A Poisoning by antihyperlipidemic and antiarteriosclerotic drugs, accidental (unintentional), initial encounter

== ENCOUNTER 2019-12-04 20:16 | Inpatient (IN) | payer MEDICARE, MEDICAID ==
[~2019-12-04] VITALS: Ht 190.5 cm; Wt 134.2 kg
[~2019-12-04 20:16] MED LIST changes: +AMIODARONE HCL200 MG PO; +DIGOXIN250 MCG PO; +FLOMAX0.4 MG PO; +LIPITOR20 MG PO; +METOPROLOL TART50 MG PO; +TOPROL XL25 MG PO; +TORSEMIDE20 MG PO; +XARELTO20 MG PO
[2019-12-04 21:01] VITALS: BP 123/84
[2019-12-04 21:08] LABS: BASOPHILS 0.6 % (0-2); EOSINOPHILS 2.3 % (0-7); HEMATOCRIT 41.8 % (42.0-54.0); HEMOGLOBIN 13.8 g/dL (13.5-17.5); MCH 27.7 pg (26.0-34.0); MCV 83.9 fL (80.0-100.0); MONOCYTES 7.5 % (2-11); NEUTROPHILS 75.6 % (40-80); PLATELET COUNT 148 10x3/uL (130-400); RBC 4.98 10x6/uL (4.20-6.10); RDW 16.7 % (11.5-14.5); WBC 6.6 10x3/uL (4.8-10.8)
[2019-12-04 21:13] LABS: INR 4.22 (0.85-1.17); PROTIME 39.8 SECONDS (11.6-15.0)
[2019-12-04 21:14] LABS: APTT 58.3 SECONDS (22.8-39.4)
--- NOTE | 2019-12-04 21:40 | NUR ---
ADMIT TO ROOM 2114 FROM ER VIA STRETCHER. ALERT/ORIENTED/AMBULATORY. STATES HE WAS HAVING DIFFICULTY BREATHING AND CAME BACK TO ER EVEN THOUGH HE WAS JUST DISCHARGED. PT CAME WITH GEORGE THAT WAS PLACED DURING LAST ADMISSION DUE TO URINARY INTENTION. GEORGE WAS CHANGED IN ER TONIGHT. URINE IS BLOODY AND PER PATIENT IT HAS BEEN THAT WAY SINCE GEORGE WAS PLACED. ADMISSION HISTORY AND ASSESSMENT COMPLETED. HOME MEDS REVIEWED/UPDATED.
[2019-12-04 21:42] LABS: SPECIFIC GRAVITY 1.005 (1.005-1.020)
[2019-12-04 21:43] LABS: BACTERIA FEW /hpf (NEGATIVE); BILIRUBIN NEGATIVE (NEGATIVE); EPITHELIAL CELLS RARE /hpf (0-5); GLUCOSE NEGATIVE (NEGATIVE); KETONE NEGATIVE (NEGATIVE); NITRITE NEGATIVE (NEGATIVE); RED CELLS - URINE >50 /hpf (0-5); UROBILINOGEN NORMAL (NORMAL)
[2019-12-04 21:46] LABS: CALCIUM 7.6 mg/dL (8.5-10.1); CHLORIDE - SERUM 100 mmol/L (98-107); GLUCOSE 127 mg/dL (74-106); POTASSIUM - SERUM 4.4 mmol/L (3.5-5.1); SODIUM 135 mmol/L (136-145); eGFR NON AFRICAN AMERICAN 35 mL/min (90-120)
[2019-12-04 21:48] LABS: UDS - AMPHET NEGATIVE QUAL (NEGATIVE); UDS - BARB NEGATIVE QUAL (NEGATIVE); UDS - BENZO NEGATIVE QUAL (NEGATIVE); UDS - COCAINE NEGATIVE QUAL (NEGATIVE); UDS - OPIATE NEGATIVE QUAL (NEGATIVE); UDS - PCP NEGATIVE QUAL (NEGATIVE); UDS - THC NEGATIVE QUAL (NEGATIVE)
[2019-12-04 21:55] LABS: CALC OSMOLALITY 276 mosm/kg (275-300); UREA NITROGEN 27 mg/dL (7-18)
[2019-12-04 22:05] LABS: ALBUMIN 3.4 g/dL (3.4-5.0); ALKALINE PHOSPHATASE 53 U/L (30-120); ALT (SGPT) 53 U/L (10-68); BILIRUBIN - TOTAL 1.95 mg/dL (0.2-1.3); CKMB 1.3 U/L (0.0-3.6); CREATINE KINASE 94 UL (21-232); DIGOXIN 0.94 ng/mL (0.90-2.00); MAGNESIUM - SERUM 2.1 mg/dL (1.8-2.4); PRO BNP 9316 pg/mL (0-125); PROTEIN - SERUM 6.3 g/dL (6.4-8.2); TROPONIN-I 0.033 ng/mL (0.000-0.060)
[2019-12-04 22:14] VITALS: BP 105/72
--- NOTE | 2019-12-04 22:27 | NUR ---
PATIENT ARRIVED WITH GEORGE, BAG HAD APPROX 300 CC OF RED TINGED URINE, SOME CLOTS. FLUSHED SEVERAL TIMES WITH NS VERY LITTLE RETURN. DOCTOR SAID TO CHANGE GEORGE, NEW GEORGE INSERTED WITH RESISTANCE, UNCOMFORTABLE FOR PATIENT, HE TOLERATED WELL. OUTPUT 80 CC OF PINK TINGE URINE.
[2019-12-05] VITALS: BP 108/53; BMI 36.5; BMI 37.2
--- NOTE | 2019-12-05 01:19 | NUR ---
RESTING IN BED WITH NO DISTRESS AND WATCHING TV.
[2019-12-05 04:30] VITALS: BP 103/62
--- NOTE | 2019-12-05 08:52 | NUR ---
AM MEDS GIVEN AT THIS TIME. ALSO EMPTIED 1700CC OUT OF GEORGE. PT A/O X4, RESP EVEN AND UNLABORED ON 2L NC. RT FA IV SL. MONITOR SHOWING CAF/PACED WITH RATE OF 89. GEORGE DRAINING DARK CONCENTRATED URINE. PT DENIES ANY NEEDS AT THIS TIME. CALL LIGHT IN REACH, NAD NOTED, WILL CONTINUE TO MONITOR.
--- NOTE | 2019-12-05 09:20 | NUR ---
AM MEDS GIVEN AT THIS TIME. PT RESTING COMFORTABLY IN BED, DENIES ANY NEEDS AT THIS TIME. CALL LIGHT IN REACH, NAD NOTED,W ILL CONTINUE TO MONITOR.
--- NOTE | 2019-12-05 10:35 | NUR ---
PT SCREAMING OUT, WENT TO CHECK ON PT AND HIS STATED " IT'S DOING IT AGAIN, IT'S SHOCKING ME". EPISODE LASTED ABOUT 30SEC. THE WHOLE TIME IT WAS HAPPENING PT WAS RUNNING CAF WITH RATE IN THE 80'S. PT STATED THAT HE THINKS THAT IT'S ONE OF THE MEDICAITONS THAT IT IS CAUSING HIM TO HAVE THESE EPISODES. PAGED REJI GAMBINO APRN, WATING CLOSING AGENT BACK.
[2019-12-05 10:41] VITALS: BP 102/63
--- NOTE | 2019-12-05 11:21 | NUR ---
PAGED REJI GAMBINO APRN AGAIN.
[2019-12-05 13:14] VITALS: BP 94/64
[2019-12-05 13:33] VITALS: Ht 190.5 cm; Wt 134.2 kg
--- NOTE | 2019-12-05 15:30 | NUR ---
PT HAD EPISODE OF SCREAMING OUT, WENT TO CHECK ON PT AND PT C/O OF EXCRUCIATING PAIN TO PENIS. PT DESCRIBES IT BURNING AND FEELING LIKE HE NEEDS TO URINATE, BUT EPISODE ONLY LASTED 40SEC. AFTER THE 40SEC PT WAS FINE AND STATED THAT HIS PAIN WENT AWAY. PT STATES THAT HE WANTS TO BE TRANSFERED TO WHERE HIS UROLOGIST DR. HALL WORKS AT. SAMI IGNACIO, WAITING EVIDENCE CUSTODIAN BACK.
[2019-12-05 17:53] VITALS: BP 96/68
--- NOTE | 2019-12-05 19:00 | NUR ---
RECCEIVED BEDSIDE REPORT. PATIENT IS ALERT AND ORIENTED, RESTING COMFORTABLY IN BED. RESPIRATIONS ARE EVEN AND UNLABORED. NO S/S OF DISTRESS. NO C/O PAIN. CALL LILGHT WITHIN REACH. WILL CPOC.
[2019-12-05 20:22] VITALS: BP 93/53
[2019-12-06] VITALS: BP 106/65
[2019-12-06 04:00] VITALS: BP 85/59
--- NOTE | 2019-12-06 05:19 | NUR ---
PAGED SARY SAHNI APN, REGARDING PATIENT URINE DISCOLORATION. AWAITING RETURN CALL.
--- NOTE | 2019-12-06 05:38 | NUR ---
RECEIVED CALL BACK, SARY SAHNI APN, NOTIFIED OF DISCOLORATION OF PATIENT BLOOD TINGED URINE. PTT AND PT/INR ORDERED.
[2019-12-06 06:33] LABS: BASOPHILS 0.6 % (0-2); EOSINOPHILS 3.6 % (0-7); HEMATOCRIT 39.2 % (42.0-54.0); HEMOGLOBIN 12.8 g/dL (13.5-17.5); LYMPHOCYTES 15.8 % (15-50); MCH 26.7 pg (26.0-34.0); MCHC 32.7 g/dL (31.0-37.0); MEAN PLATELET VOLUME 11.4 fL (7.4-10.4); MONOCYTES 7.4 % (2-11); NEUTROPHILS 72.6 % (40-80); PLATELET COUNT 139 10x3/uL (130-400); RBC 4.79 10x6/uL (4.20-6.10); WBC 5.2 10x3/uL (4.8-10.8)
[2019-12-06 06:40] LABS: MCV 81.8 fL (80.0-100.0)
--- NOTE | 2019-12-06 07:00 | NUR ---
RECEIVED REPORT. ASSUMED CARE OF PATIENT. PATIENT RESTING WITH EYES CLOSED, EASILY AROUSED. RESP EVEN AND UNLABORED. PATIENT ON TELEMETRY, PACED WITH RATE OF 79. CALL LIGHT WITHIN REACH. BEDSIDE SHIFT REPORT COMPLETED. WHITE BOARD UPDATED. NO DISTRESS.
[2019-12-06 07:19] LABS: ALBUMIN 3.5 g/dL (3.4-5.0); ANION GAP 14.1 mmol/L (8-16); BILIRUBIN - TOTAL 1.63 mg/dL (0.2-1.3); CALCIUM 8.5 mg/dL (8.5-10.1); CREATININE - SERUM 1.7 mg/dL (0.6-1.3); MAGNESIUM - SERUM 2.1 mg/dL (1.8-2.4); POTASSIUM - SERUM 4.1 mmol/L (3.5-5.1); PROTEIN - SERUM 6.4 g/dL (6.4-8.2)
[2019-12-06 07:27] LABS: APTT 52.9 SECONDS (22.8-39.4); INR 3.53 (0.85-1.17); PROTIME 34.7 SECONDS (11.6-15.0)
[2019-12-06 09:41] VITALS: BP 109/64
--- NOTE | 2019-12-06 11:57 | NUR ---
[facility] INITIATED FOR COMPLAINTS OF CONSTIPATION. NO DISTRESS. PATIENT INQUIRING ABOUT BEING TRANSFERRED, STILL NO ORDERS.
--- NOTE | 2019-12-06 12:47 | MORECARE ---
CASE MANAGEMENT DISCHARGE SUMMARY PATIENT: ZEYNEP SKY JR UNIT: [id number] ADM DATE: 12/04/19 AGE: 69 : 52 SEX: M ROOM/BED: D.2115 AUTHOR: JOESPH THIBODEAUX PHYSICIAN: REFERRING PHYSICIAN: JANNET STROUD MD DATE OF SERVICE: 12/06/19 Discharge Plan Patient Name: ZEYNEP SKY [facility] [facility] 1950 Planned Disposition: Acute Care Hospital Anticipated Discharge Date: Discharge Date: Expected LOS: Initial Reviewer: [email or web address] Initial Review Date: 12/06/2019 Generated: 12/06/19 1:46 pm Patient Name: ZEYNEP SKY Page [id number] at 1247 All edits/amendments must be made on the electronic document DICTATION DATE: 12/06/19 1246 MASK FORMER: IVANA 12/06/19 1246 RPT#: [id number] IA DATE: STATUS: ADM IN [facility] [address] [place] [address] END OF REPORT
--- NOTE | 2019-12-06 12:57 | MORECARE ---
CASE MANAGEMENT DISCHARGE SUMMARY PATIENT: ZEYNEP SKY JR UNIT: [id number] ADM DATE: 12/04/19 AGE: 69 : 52 SEX: M ROOM/BED: D.2115 AUTHOR: JOESPH THIBODEAUX PHYSICIAN: REFERRING PHYSICIAN: JANNET SRTOUD MD DATE OF SERVICE: 12/06/19 Discharge Plan Patient Name: ZEYNEP SKY [facility] [facility] 1950 Planned Disposition: Acute Care Hospital Anticipated Discharge Date: Discharge Date: Expected LOS: Initial Reviewer: [email or web address] Initial Review Date: 12/06/2019 Generated: 12/06/19 1:56 pm DCPIA - Discharge Planning Initial Assessment Updated by [id number]: April Faith on 12/06/19 12:48 pm * Is the patient Alert and Oriented? Yes * How many steps to enter\exit or inside your home? 0/0 * PCP Dr. Esteves in [place] * Pharmacy [facility] in [place] * Preadmission Environment Home with Family * ADLs Independent * Equipment None * List name and contact numbers for known caregivers / representatives who currently or will assist patient after discharge: Molly Sky - mother - [phone] * Verbal permission to speak to the caregivers and representatives has been obtained from the patient. Yes * Community resources currently utilized Home Health * Please name any agencies selected above. [facility] * Additional services required to return to the preadmission environment? No * Can the patient safely return to the preadmission environment? Yes * Has this patient been hospitalized within the prior 30 days at any hospital? Yes Last DP export: 12/06/19 11:47 am Patient Name: ZEYNEP SKY Page [id number] at 1257 All edits/amendments must be made on the electronic document DICTATION DATE: 12/06/19 1256 FENCE REPAIRMAN: IVANA 12/06/19 1256 RPT#: [id number] DC DATE: STATUS: ADM IN [facility] [address] [place] [address] END OF REPORT
--- NOTE | 2019-12-06 13:06 | MORECARE ---
CASE MANAGEMENT DISCHARGE SUMMARY PATIENT: ZEYNEP SKY JR UNIT: [id number] ADM DATE: 12/04/19 AGE: 69 : 52 SEX: M ROOM/BED: D.3355 AUTHOR: CARLOS EDUARDO,DOC PHYSICIAN: REFERRING PHYSICIAN: JANNET STROUD MD DATE OF SERVICE: 12/06/19 Discharge Plan Patient Name: ZEYNEP SKY [facility] : 1950 Planned Disposition: Acute Care Hospital Anticipated Discharge Date: Discharge Date: Expected LOS: Initial Reviewer: [email or web address] Initial Review Date: 12/06/2019 Generated: 12/06/19 2:05 pm Comments DCP- Discharge Planning Updated by [email or web address]: April Faith on 12/06/19 12:[address] Patient Name: ZEYNEP SKY Admission Status: ER Accout number: [id number] Admission Date: 12-04-2019 : 1950 Admission Diagnosis:SHORTNESS OF BREATH Attending: VADIM STROUD Current LOS: 2 Anticipated DC Date: Planned Disposition: Acute Care Hospital Primary Insurance: [facility] MEDICARE SOLUTIONS Discharge Planning Comments: CM met with patient to discuss discharge planning/needs. He lives with his mother. I had set up [facility] to see him last time he went home and he was not home long enough for services to start. He states that he just gets short of breath even using the phone. I spoke with Fanta Richardson with cardiology to see if she needed me to try and transfer him for ablation (recommended by cardiology) but she states that ablation can be set up as an outpatient. I informed Dr. Gaitan and [facility] Childs that Fanta states no need to transfer for cardiology. They are aware that INR is elevated and lucas with bloody urine. [facility] is now here with Dr. Gaitan and I have asked her to call me and let me know if Dr. Gaitan would like the patient transferred for urology. Patient is agreeable to transfer to [place] if needed. He is concerned with the urine being bloody. I informed him that being on Xarelto may be the cause. CM will continue to follow and assist with discharge planning/needs. Geographic Information Systems Analyst: April Faith DCPIA - Discharge Planning Initial Assessment Updated by [id number]: April Faith on 12/06/19 12:48 pm * Is the patient Alert and Oriented? Yes * How many steps to enter\exit or inside your home? 0/0 * PCP Dr. Esteves in [place] * Pharmacy [facility] in [place] * Preadmission Environment Home with Family * ADLs Independent * Equipment None * List name and contact numbers for known caregivers / representatives who currently or will assist patient after discharge: Molly Sky - mother - [phone] * Verbal permission to speak to the caregivers and representatives has been obtained from the patient. Yes * Community resources currently utilized Home Health * Please name any agencies selected above. [facility] * Additional services required to return to the preadmission environment? No * Can the patient safely return to the preadmission environment? Yes * Has this patient been hospitalized within the prior 30 days at any hospital? Yes Last DP export: 12/06/19 11:57 am Patient Name: ZEYNEP SKY Page [id number] at 1306 All edits/amendments must be made on the electronic document DICTATION DATE: 12/06/19 1305 CABLE TOOL OPERATOR: IVANA 12/06/19 1305 RPT#: [id number] DC DATE: STATUS: ADM IN [facility] [address] [place] [address] END OF REPORT
[2019-12-06 13:32] VITALS: BP 96/63
--- NOTE | 2019-12-06 16:57 | NUR ---
SPRITE PROVIDED. SITTING IN BED WITH ATTENTION TOWARD TELEVISION. CALL LIGHT WIHTIN REACH. NO DISTRESS.
[2019-12-06 17:09] VITALS: BP 104/70
--- NOTE | 2019-12-06 17:13 | MORECARE ---
CASE MANAGEMENT DISCHARGE SUMMARY PATIENT: ZEYNEP SKY JR UNIT: [id number] ADM DATE: 12/04/19 AGE: 69 : 52 SEX: M ROOM/BED: D.2115 AUTHOR: CARLOS EDUARDO,DOC PHYSICIAN: REFERRING PHYSICIAN: JANNET STROUD MD DATE OF SERVICE: 12/06/19 Discharge Plan Patient Name: ZEYNEP SKY [facility] [facility] 1950 Planned Disposition: Acute Care Hospital Anticipated Discharge Date: Discharge Date: Expected LOS: Initial Reviewer: [id number] Initial Review Date: 12/06/2019 Generated: 12/06/19 6:13 pm Comments DCP- Discharge Planning Updated by [id number]: April Faith on 12/06/19 3:[address] CM had a walk test done. His oxygen saturation is 95% and increased to 99% on room air with exertion. He does not qualify for oxygen. He has benefits for [facility] transportation and I provided him the number to [facility] as well as his Medicaid number and informed him that they could transfer him to and from [facility] appointments and the rules. He states he has a friend picking him up in the morning and he has made an appointment in [place] for tomorrow afternoon with his doctor. I informed Gill at [facility] and he will be seen on Thursday by [facility]. Plan is to discharge home in the am. CM will continue to follow and assist with discharge planning/needs. DCP- Discharge Planning Updated by [id number]: April Faith on 12/06/19 12:[address] Patient Name: ZEYNEP SKY Admission Status: ER Accout number: [id number] Admission Date: 12-04-2019 : 1950 Admission Diagnosis:SHORTNESS OF BREATH Attending: VADIM STROUD Current LOS: 2 Anticipated DC Date: Planned Disposition: Acute Care Hospital Primary Insurance: [facility] MEDICARE SOLUTIONS Discharge Planning Comments: CM met with patient to discuss discharge planning/needs. He lives with his mother. I had set up [facility] to see him last time he went home and he was not home long enough for services to start. He states that he just gets short of breath even using the phone. I spoke with Fanta Richardson with cardiology to see if she needed me to try and transfer him for ablation (recommended by cardiology) but she states that ablation can be set up as an outpatient. I informed Dr. Gaitan and Salvatore Childs that [facility] states no need to transfer for cardiology. They are aware that INR is elevated and lucas with bloody urine. [facility] is now here with Dr. Gaitan and I have asked her to call me and let me know if Dr. Gaitan would like the patient transferred for urology. Patient is agreeable to transfer to [place] if needed. He is concerned with the urine being bloody. I informed him that being on Xarelto may be the cause. CM will continue to follow and assist with discharge planning/needs. Crossing Watchman: April Faith [facility] - [facility]charge [facility] Initial Assessment Updated by [id number]: April Faith on 12/06/19 12:48 pm * Is the patient Alert and Oriented? Yes * How many steps to enter\exit or inside your home? 0/0 * PCP Dr. Esteves in [place] * Pharmacy [facility] in [place] * Preadmission Environment Home with Family * ADLs Independent * Equipment None * List name and contact numbers for known caregivers / representatives who currently or will assist patient after discharge: Molly Sky - mother - [phone] * Verbal permission to speak to the caregivers and representatives has been obtained from the patient. Yes * Community resources currently utilized Home Health * Please name any agencies selected above. [facility] * Additional services required to return to the preadmission environment? No * Can the patient safely return to the preadmission environment? Yes * Has this patient been hospitalized within the prior 30 days at any hospital? Yes Coverage Notice Reviewer: [id number] - April Faith Notice Issued Date-Time: 12/06/2019 16:38 Notice Type: IM Discharge Notice Notice Delivered To: Patient Relationship to Patient: Self Hydroelectric Mechanic Name: Delivery Method: HAND - Hand Delivered Jessica Days: Prior Verbal Notification: Recipient Understood Notice: Yes Recipient Signature: Yes Med Rec Note Co-signed by Attending: Coverage Notice Comment: IMM delivered, explained, signed, given, copy placed in MR Last DP export: 12/06/19 12:06 pm Patient Name: ZEYNEP SKY Page [id number] at 1713 All edits/amendments must be made on the electronic document DICTATION DATE: 12/06/191712 SCHOOL PHOTOGRAPHER: IVANA 12/06/191712 RPT#: [id number] DC DATE: STATUS: ADM IN [facility] [address] [place] [address] END OF REPORT
[2019-12-06 20:00] VITALS: BP 105/78
--- NOTE | 2019-12-06 21:37 | NUR ---
NOTIFIED BY PT THAT HIS DEFIBRILLATOR HAD JUST "FIRED" NO CHANGES ON TELEMETRY, VITALS STABLE.
[2019-12-07] VITALS: BP 107/62
--- NOTE | 2019-12-07 00:54 | NUR ---
RESTING WITH EYES CLOSED, RESPERATIONS EVEN, NO S/S DISTRESS NOTED.
[2019-12-07 04:00] VITALS: BP 113/64
[2019-12-07 06:12] LABS: BASOPHILS 0.8 % (0-2); EOSINOPHILS 3.1 % (0-7); HEMATOCRIT 38.1 % (42.0-54.0); HEMOGLOBIN 12.5 g/dL (13.5-17.5); MCH 26.9 pg (26.0-34.0); MCHC 32.8 g/dL (31.0-37.0); MCV 82.1 fL (80.0-100.0); MEAN PLATELET VOLUME 11.6 fL (7.4-10.4); MONOCYTES 10.3 % (2-11); NEUTROPHILS 70.8 % (40-80); PLATELET COUNT 140 10x3/uL (130-400); RBC 4.64 10x6/uL (4.20-6.10); RDW 16.1 % (11.5-14.5); WBC 5.1 10x3/uL (4.8-10.8)
[2019-12-07 06:38] LABS: INR 4.08 (0.85-1.17); PROTIME 38.8 SECONDS (11.6-15.0)
[2019-12-07 06:46] LABS: ALBUMIN 3.3 g/dL (3.4-5.0); ANION GAP 13.2 mmol/L (8-16); BILIRUBIN - TOTAL 1.59 mg/dL (0.2-1.3); CALCIUM 8.7 mg/dL (8.5-10.1); CARBON DIOXIDE 26.7 mmol/L (21.0-32.0); CREATININE - SERUM 1.7 mg/dL (0.6-1.3); MAGNESIUM - SERUM 2.1 mg/dL (1.8-2.4); POTASSIUM - SERUM 3.9 mmol/L (3.5-5.1); PROTEIN - SERUM 6.2 g/dL (6.4-8.2)
--- NOTE | 2019-12-07 07:10 | NUR ---
REPORT RECEIVED FROM MOPHEAD TRIMMER AND WRAPPER AND PATIENT CARE ASSUMED. PATIENT LAYING IN BED AWAKE ALERT AND ORIENTED X 4. PATIENT IS STABLE AND VSS. PATIENT DENIES ANY NEEDS OR PAIN. WILL CONTINUE WITH PLAN OF CARE. SR UPX 2 BED IN LOW POSITION AND CALL LIGHT IN REACH.
[2019-12-07 09:00] VITALS: BP 104/63
[2019-12-07] MEDS ORDERED: LASIX40 MG PO (10:33)
--- NOTE | 2019-12-07 11:47 | MORECARE ---
CASE MANAGEMENT DISCHARGE SUMMARY PATIENT: ZEYNEP SKY JR UNIT: [id number] ADM DATE: 12/04/19 AGE: 69 : 52 SEX: M ROOM/BED: D.2115 AUTHOR: CARLSO EDUARDO,DOC PHYSICIAN: REFERRING PHYSICIAN: JANNET STROUD MD DATE OF SERVICE: 12/07/19 Discharge Plan Patient Name: ZEYNEP SKY [facility] [facility] 1950 Planned Disposition: Acute Care Hospital Anticipated Discharge Date: Discharge Date: Expected LOS: Initial Reviewer: [email or web address] Initial Review Date: 12/06/2019 Generated: 12/07/19 12:46 pm Comments DCP- Discharge Planning Updated by [id number]: April Faith on 12/06/19 3:[address] CM had a walk test done. His oxygen saturation is 95% and increased to 99% on room air with exertion. He does not qualify for oxygen. He has benefits for [facility] transportation and I provided him the number to [facility] as well as his Medicaid number and informed him that they could transfer him to and from [facility] appointments and the rules. He states he has a friend picking him up in the morning and he has made an appointment in [place] for tomorrow afternoon with his doctor. I informed Gill at [facility] and he will be seen on Thursday by [facility]. Plan is to discharge home in the am. CM will continue to follow and assist with discharge planning/needs. DCP- Discharge Planning Updated by [id number]: April Faith on 12/06/19 12:[address] Patient Name: ZEYNEP SKY Admission Status: ER Accout number: [id number] Admission Date: 12-04-2019 : 1950 Admission Diagnosis:SHORTNESS OF BREATH Attending: VADIM STROUD Current LOS: 2 Anticipated DC Date: Planned Disposition: Acute Care Hospital Primary Insurance: [facility] MEDICARE SOLUTIONS Discharge Planning Comments: CM met with patient to discuss discharge planning/needs. He lives with his mother. I had set up [facility] to see him last time he went home and he was not home long enough for services to start. He states that he just gets short of breath even using the phone. I spoke with Fanta Richardson with cardiology to see if she needed me to try and transfer him for ablation (recommended by cardiology) but she states that ablation can be set up as an outpatient. I informed Dr. Gaitan and Salvatore Childs that [facility] states no need to transfer for cardiology. They are aware that INR is elevated and lucas with bloody urine. [facility] is now here with Dr. Gaitan and I have asked her to call me and let me know if Dr. Gaitan would like the patient transferred for urology. Patient is agreeable to transfer to [place] if needed. He is concerned with the urine being bloody. I informed him that being on Xarelto may be the cause. CM will continue to follow and assist with discharge planning/needs. Strategic Partnership Specialist: April Faith [facility] - [facility]charge Planning Initial Assessment Updated by [id number]: April Faith on 12/06/19 12:48 pm * Is the patient Alert and Oriented? Yes * How many steps to enter\exit or inside your home? 0/0 * PCP Dr. Esteves in [place] * Pharmacy [facility] in [place] * Preadmission Environment Home with Family * ADLs Independent * Equipment None * List name and contact numbers for known caregivers / representatives who currently or will assist patient after discharge: Molly Sky - mother - [phone] * Verbal permission to speak to the caregivers and representatives has been obtained from the patient. Yes * Community resources currently utilized Home Health * Please name any agencies selected above. [facility] * Additional services required to return to the preadmission environment? No * Can the patient safely return to the preadmission environment? Yes * Has this patient been hospitalized within the prior 30 days at any hospital? Yes External Providers [facility] Next Contact Date: Service Request Date: Service Type: Resolution: Reviewer: Comments: Coverage Notice Reviewer: [id number] - April Faith Notice Issued Date-Time: 12/06/2019 16:38 Notice Type: IM Discharge Notice Notice Delivered To: Patient Relationship to Patient: Self Director Of Alumni Relations Name: Delivery Method: HAND - Hand Delivered Jessica Days: Prior Verbal Notification: Recipient Understood Notice: Yes Recipient Signature: Yes Med Rec Note Co-signed by Attending: Coverage Notice Comment: IMM delivered, explained, signed, given, copy placed in MR Last DP export: 12/06/19 4:13 pm Patient Name: ZEYNEP SKY Page 86390 at 1147 All edits/amendments must be made on the electronic document DICTATION DATE: 12/07/19 1146 PHYSICIAN CODING SPECIALIST: IVANA 12/07/19 1146 RPT#: [id number] DC DATE: STATUS: ADM IN [facility] [address] [place] [address] END OF REPORT
--- NOTE | 2019-12-07 11:55 | MORECARE ---
CASE MANAGEMENT DISCHARGE SUMMARY PATIENT: ZEYNEP SKY JR UNIT: [id number] ADM DATE: 12/04/19 AGE: 69 : 52 SEX: M ROOM/BED: D.6385 AUTHOR: CARLOS EDUARDODOC PHYSICIAN: REFERRING PHYSICIAN: JANNET STROUD MD DATE OF SERVICE: 12/07/19 Discharge Plan Patient Name: ZEYNEP SKY Facility: [facility]:[place] : 1950 Planned Disposition: Acute Care Hospital Anticipated Discharge Date: Discharge Date: Expected LOS: Initial Reviewer: [email or web address] Initial Review Date: 12/06/2019 Generated: 12/07/19 12:55 pm Comments DCP- Discharge Planning Updated by [email or web address]: April Faith on 12/07/19 10:[address] Patient Name: ZEYNEP SKY Encounter No: [id number] : 1950 Primary Insurance: [facility] [employer] Anticipated DC Date: Planned Disposition: Acute Care Hospital External Planned Provider: : DCP follow-up note: Patient in agreement with discharge plan. No changes to plan. I called Gill with [facility] and they will see patient on Thursday. Case management will follow and assist as needed. April Vianney DCP- Discharge Planning Updated by [id number]: April Vianeny on 12/06/19 3:[address] CM had a walk test done. His oxygen saturation is 95% and increased to 99% on room air with exertion. He does not qualify for oxygen. He has benefits for [employer] transportation and I provided him the number to [facility] as well as his Medicaid number and informed him that they could transfer him to and from [facility] appointments and the rules. He states he has a friend picking him up in the morning and he has made an appointment in [place] for tomorrow afternoon with his doctor. I informed Gill at [facility] and he will be seen on Thursday by home health. Plan is to discharge home in the am. CM will continue to follow and assist with discharge planning/needs. DCP- Discharge Planning Updated by [id number]: April Frazierdelio on 12/06/19 12:[address] Patient Name: ZEYNEP SKY Admission Status: ER Accout number: [id number] Admission Date: 12-04-2019 : 1950 Admission Diagnosis:SHORTNESS OF BREATH Attending: VADIM STROUD Current LOS: 2 Anticipated DC Date: Planned Disposition: Acute Care Hospital Primary Insurance: [facility] [employer] Discharge Planning Comments: CM met with patient to discuss discharge planning/needs. He lives with his mother. I had set up [facility] to see him last time he went home and he was not home long enough for services to start. He states that he just gets short of breath even using the phone. I spoke with Fanta Richardson with cardiology to see if she needed me to try and transfer him for ablation (recommended by cardiology) but she states that ablation can be set up as an outpatient. I informed Dr. Gaitan and Salvatore Childs that Fanta states no need to transfer for cardiology. They are aware that INR is elevated and lucas with bloody urine. [facility] is now here with Dr. Gaitan and I have asked her to call me and let me know if Dr. Gaitan would like the patient transferred for urology. Patient is agreeable to transfer to [place] if needed. He is concerned with the urine being bloody. I informed him that being on Xarelto may be the cause. CM will continue to follow and assist with discharge planning/needs. Cda Teacher: April Faith [facility] - Discharge Planning Initial Assessment Updated by [email or web address]: April Faith on 12/06/19 12:48 pm * Is the patient Alert and Oriented? Yes * How many steps to enter\exit or inside your home? 0/0 * PCP Dr. Esteves in [place] * Pharmacy [facility] in [place] * Preadmission Environment Home with Family * ADLs Independent * Equipment None * List name and contact numbers for known caregivers / representatives who currently or will assist patient after discharge: Molly Sky - mother - [phone] * Verbal permission to speak to the caregivers and representatives has been obtained from the patient. Yes * Community resources currently utilized Home Health * Please name any agencies selected above. [facility] * Additional services required to return to the preadmission environment? No * Can the patient safely return to the preadmission environment? Yes * Has this patient been hospitalized within the prior 30 days at any hospital? Yes Coverage Notice Reviewer: [id number] - April Faith Notice Issued Date-Time: 12/06/2019 16:38 Notice Type: IM Discharge Notice Notice Delivered To: Patient Relationship to Patient: Self Storage Facility Rental Clerk Name: Delivery Method: HAND - Hand Delivered Jessica Days: Prior Verbal Notification: Recipient Understood Notice: Yes Recipient Signature: Yes Med Rec Note Co-signed by Attending: Coverage Notice Comment: IMM delivered, explained, signed, given, copy placed in MR Last DP export: 12/07/19 10:47 am Patient Name: ZEYNEP SKY Page [id number] at 1155 All edits/amendments must be made on the electronic document DICTATION DATE: 12/07/19 1155 COUNTER INSTALLER: IVANA 12/07/19 1155 RPT#: [id number] DC DATE: STATUS: ADM IN [facility] [address] [place] [address] END OF REPORT
--- NOTE | 2019-12-08 07:37 | MORECARE ---
CASE MANAGEMENT DISCHARGE SUMMARY PATIENT: ZEYNEP SKY JR UNIT: [id number] ADM DATE: 12/04/19 AGE: 69 : 52 SEX: M ROOM/BED: D.7535 AUTHOR: JOESPH THIBODEAUX PHYSICIAN: REFERRING PHYSICIAN: JANNET STROUD MD DATE OF SERVICE: 12/08/19 Discharge Plan Patient Name: ZEYNEP SKY Facility: [facility]:[place] : 1950 Planned Disposition: Acute Care Hospital Anticipated Discharge Date: Discharge Date: 12/07/2019 Expected LOS: Initial Reviewer: [email or web address] Initial Review Date: 12/06/2019 Generated: 12/08/19 8:36 am Comments DCP- Discharge Planning Updated by [id number]: April Faith on 12/07/19 10:[address] Patient Name: ZEYNEP SKY Encounter No: [id number] : 1950 Primary Insurance: [facility] MED[employer] SOLUTIONS Anticipated DC Date: Planned Disposition: Acute Care Hospital External Planned Provider: : DCP follow-up note: Patient in agreement with discharge plan. No changes to plan. I called Gill with [facility] and they will see patient on Thursday. Case management will follow and assist as needed. April Faith DCP- Discharge Planning Updated by [email or web address]: April Vianney on 12/06/19 3:[address] CM had a walk test done. His oxygen saturation is 95% and increased to 99% on room air with exertion. He does not qualify for oxygen. He has benefits for [email or web address] transportation and I provided him the number to [facility] as well as his Medicaid number and informed him that they could transfer him to and from [facility] appointments and the rules. He states he has a friend picking him up in the morning and he has made an appointment in [place] for tomorrow afternoon with his doctor. I informed Gill at [facility] and he will be seen on Thursday by home health. Plan is to discharge home in the am. CM will continue to follow and assist with discharge planning/needs. DCP- Discharge Planning Updated by [email or web address]: April Faith on 12/06/19 12:[address] Patient Name: ZEYNEP SKY Admission Status: ER Accout number: [id number] Admission Date: 12-04-2019 : 1950 Admission Diagnosis:SHORTNESS OF BREATH Attending: VADIM STROUD Current LOS: 2 Anticipated DC Date: Planned Disposition: Acute Care Hospital Primary Insurance: [facility] MED[employer] SOLUTIONS Discharge Planning Comments: CM met with patient to discuss discharge planning/needs. He lives with his mother. I had set up [facility] to see him last time he went home and he was not home long enough for services to start. He states that he just gets short of breath even using the phone. I spoke with Fanta Richardson with cardiology to see if she needed me to try and transfer him for ablation (recommended by cardiology) but she states that ablation can be set up as an outpatient. I informed Dr. Gaitan and Salvatore Childs that Fanta states no need to transfer for cardiology. They are aware that INR is elevated and lucas with bloody urine. [facility] is now here with Dr. Gaitan and I have asked her to call me and let me know if Dr. Gaitan would like the patient transferred for urology. Patient is agreeable to transfer to [place] if needed. He is concerned with the urine being bloody. I informed him that being on Xarelto may be the cause. CM will continue to follow and assist with discharge planning/needs. Er Nurse: April Faith [facility] - Discharge Planning Initial Assessment Updated by [id number]: April Faith on 12/06/19 12:48 pm * Is the patient Alert and Oriented? Yes * How many steps to enter\exit or inside your home? 0/0 * PCP Dr. Esteves in [place] * Pharmacy [facility] in [place] * Preadmission Environment Home with Family * ADLs Independent * Equipment None * List name and contact numbers for known caregivers / representatives who currently or will assist patient after discharge: Molly Sky - mother - [phone] * Verbal permission to speak to the caregivers and representatives has been obtained from the patient. Yes * Community resources currently utilized Home Health * Please name any agencies selected above. [place] [facility] * Additional services required to return to the preadmission environment? No * Can the patient safely return to the preadmission environment? Yes * Has this patient been hospitalized within the prior 30 days at any hospital? Yes Coverage Notice Reviewer: [id number] - April Faith Notice Issued Date-Time: 12/06/2019 16:38 Notice Type: IM Discharge Notice Notice Delivered To: Patient Relationship to Patient: Self Supervisor Winter Name: Delivery Method: HAND - Hand Delivered Jessica Days: Prior Verbal Notification: Recipient Understood Notice: Yes Recipient Signature: Yes Med Rec Note Co-signed by Attending: Coverage Notice Comment: IMM delivered, explained, signed, given, copy placed in MR Last DP export: 12/07/19 10:55 am Patient Name: ZEYNEP SKY Page 25511 at 0737 All edits/amendments must be made on the electronic document DICTATION DATE: 12/08/1937 TAR BOILER: IVANA 12/08/19 0737 RPT#: [id number] DC DATE:12/07/19 STATUS: DIS IN [facility] [address] [place] [address] END OF REPORT
== END 2019-12-07 12:21 | disposition home health service (06) | DRG 308 ==
LOC: D.ER 20:16 → D.M2 21:21
PROVIDERS: Family Medicine; ADMIT Emergency Medicine; ATTEND Emergency Medicine
DX: I48.91 Unspecified atrial fibrillation (principal); I50.23 Acute on chronic systolic (congestive) heart failure; T83.511A Infection and inflammatory reaction due to indwelling urethral catheter, initial encounter; N17.9 Acute kidney failure, unspecified; I42.9 Cardiomyopathy, unspecified; I35.1 Nonrheumatic aortic (valve) insufficiency; E03.9 Hypothyroidism, unspecified; E78.5 Hyperlipidemia, unspecified; Y84.9 Medical procedure, unspecified as the cause of abnormal reaction of the patient, or of later complication, without mention of misadventure at the time of the procedure; Z95.0 Presence of cardiac pacemaker; Z87.891 Personal history of nicotine dependence

== ENCOUNTER 2019-12-08 13:04 | Inpatient (IN) | payer MEDICARE, MEDICAID ==
[~2019-12-08] VITALS: Ht 190.5 cm; Wt 130.2 kg
[2019-12-08] VITALS (7 sets, daily range): BP systolic 99–125; BP diastolic 58–79; BMI 35.9
--- NOTE | ~2019-12-08 | HEMODYNAMI ---
PATIENT:ZEYNEP SKY JR MEDICAL RECORD: [id number] : [birth year] LOCATION:[facility] D.2114 ADMISSION DATE: 12/08/19 Generatedon:12/13/201914:22 Patient name: ZEYNEP SKY Patient #: [id number] SSN: [id number] : 1950 Date of study: 12/13/2019 Page: Of Hemodynamic Procedure Report Patient Data Patient Demographics Procedure consent was obtained First Name: ZEYNEP Gender: Male Last Name: ASYA Suffix: Patient #: [id number] : 1950 Age: 69 year(s) SSN: [id number] Race: Black Additional ID: [id number] Contact details [address]: [address] [place] [address] ROAD State: [place] City: [place] Zip code: [address] Past Medical History Allergies Allergen Reaction Date Comments Reported Other allergy 12/13/2019 TAMSULOSIN Admission Admission Data Admission Date: 12/08/2019 Admission Time: 16:15 Arrival Date: 12/13/2019 Arrival Time: 0:00 Admit Source: Other Insurance Payor: Medicare Room #: D.2114 [facility] #: [id number] Height (in.): 75 BSA: 2.56 (m2) Height (cm.): 190.5 BMI: 35.87 (kg/m2) Weight (lbs.): 287 Weight (kg.): 130.18 Lab Results Lab Result Date: 12/13/2019 Lab Result Time: 0:00 Biochemistry Name Units Result Min Max BUN mg/dl 16 --(---*)-- 7 18 Creatinine mg/dl 1.7 --(----)-* 0.6 1.3 eGFR ml/min 52 *-(----)-- 90 120 AM CBC Name Units Result Min Max Hematocrit % 36.5 *-(----)-- 42 54 Hemoglobin g/dl 12 *-(----)-- 13.5 17.5 Procedure Procedure Types Cath Procedure Diagnostic Procedure Cardioversion External ALVA Procedure Description Procedure Date Procedure Date: 12/13/2019 Procedure Start Time: 14:02 Procedure End Time: 14:19 Procedure Staff Name Function Mark Saucedo MD Performing Physician Jeri Sweet Sap Developer Vesta Villeda RN Nurse Stephane Min MD Additional personnel Destiney Apple RT Monitor Procedure Data Cath Procedure Fluoroscopy Diagnostic fluoroscopy Total fluoroscopy Time: 0 time: 0 min min Diagnostic fluoroscopy Total fluoroscopy dose: 0 dose: 0 mGy mGy Estimated blood loss: 0 ml Procedure Complications No complications Procedure Medications Medication Administration Route Dosage Oxygen etCO2 Nasal cannula 3 l/min Refer to Anesthesia Notes for Sedation Medications Hurricaine Falcon P.O. 1 Sprays Hemodynamics Rest BSA: 2.56 (m2) HGB: 12 (g/dl) O2 Consumption: Estimated: 316.72 (ml/min) O2 Cons umption indexed: Estimated:123.72 (ml/min/m) Heart Rate: 90 (bpm) Snapshots Pre Cath Intra NCS Post Cath Vital Signs Time Heart Resp SPO2 NIBP Rhythm Pain Sedation Rate (ipm) (%) (mmHg) Status Level (bpm) 14:02:37 90 23 100 104/63(91) A-Fib (Missing) 10(A) 14:06:35 107 14 98 114/93(98) A-Fib (Missing) 10(A) 14:10:42 111 36 92 75/55(63) A-Fib (Missing) 10(A) 14:15:27 70 39 100 97/56(73) Paced (Missing) 10(A) 14:19:29 76 56 99 104/64(74) Paced (Missing) 10(A) Medications Time Medication Route Dose Verified Delivered Reason Notes Effectiv eness by by 13:59:58 Oxygen etCO2 3 Mark Lemons used for Nasal l/min St Gabriele Villeda RN procedure cannula 14:00:02 Refer to Mark Lemons Anesthesia St Gabriele Villeda RN Notes for Sedation Medications 14:00:39 Hurricaine P.O. 1 Mark Lemons used for Falcon Sprays St Gabriele Villeda RN procedure MD Procedure Log Time Note 12:40:59 Informed consent obtained and on chart 12:41:35 Lab Result : Hemoglobin 12 g/dl 12:41:35 Lab Result : eGFR AM 52 ml/min 12:41:35 Lab Result : BUN 16 mg/dl 12:41:35 Lab Result : Creatinine 1.7 mg/dl 12:41:35 Lab Result : Hematocrit 36.5 % 12:41:47 Diagnostic Cath Status : Elective 12:42:10 Arrival Date: 12/13/2019 12:00:00 AM 12:42:11 Admit Source: Other 12:42:15 Patient Height : 75 inches 12:42:25 Patient Weight : 287 lbs 12:42:31 Insurance Payor : Medicare 12:42:48 Time tracking: Regular hours (M-F 7:00 - 5:00) 12:42:54 Plan of Care:Hemodynamics will remain stable., Cardiac rhythm will remain stable., Comfort level will be maintained., Respiratory function will remain adequate., Patient/ family verbilizes understanding of procedure., Procedure tolerated without complication., Recovers from procedure without complications.. 12:43:02 Procedure Status Cardioversion, ALVA. 12:44:18 Pre-procedure instructions explained to patient. 12:44:18 Pre-op teaching completed and patient verbalized understanding. 12:44:33 H&P Date Dictated: 12/08/2019 Within 30 days and on chart.. 12:44:51 Patient allergic to Other allergyTAMSULOSIN 12:44:59 Alarms reviewed by R. N. 12:44:59 Sharps counted by scrub and verified by R.N. 13:43:47 Vesta Villeda RN sent for patient. Start room use. 13:45:46 Stephane Min MD present and monitoring patient for TIVA. 13:52:27 Patient arrived from [facility] II to CCL 3. Patient remains on bed/stretcher for procedure. 13:52:33 Warm blankets applied, and nidia hugger turned on for patient comfort. 13:52:33 Correct patient and procedure confirmed by team. 13:52:34 ECG and BP/O2 sat monitors applied to patient. 13:59:58 Oxygen 3 l/min etCO2 Nasal cannula was administered by Vesta Villeda RN; used for procedure; Verbal order read back and verified. 14:00:02 Refer to Anesthesia Notes for Sedation Medications was administered by Vesta Villeda RN; ; Verbal order read back and verified. 14:00:08 Vital chart was started 14:00:09 Baseline sample Acquired. 14:00:16 Rhythm: paced, atrial fibrillation 14:00:23 Full Disclosure recording started 14:00:25 Family in patients room. 14:00:27 Patient NPO since Midnight. 14:00:28 Is patient on blood thinner?No 14:00:31 Patient diabetic? No. 14:00:34 Previous problem with sedation/anesthesia? Yes ? 14:00:34 Snore? Yes 14:00:35 Sleep apnea? No 14:00:36 Deviated septum? No 14:00:37 Opens mouth fully? Yes 14:00:38 Sticks out tongue? Yes 14:00:39 Hurricaine Falcon 1 Sprays P.O. was administered by Vesta Villeda RN; used for procedure; Verbal order read back and verified. 14:00:40 Airway obstruction? No ? 14:00:42 Dentures? No ? 14:00:49 IV patent on arrival in left hand with 0.9% NaCl at [facility]. 14:01:08 Quick Combo opened to sterile field. 14::57 --------ALL STOP TIME OUT------ 14::57 Final Timeout: patient, procedure, and site verified with staff and physician. All members of the team are in agreement. 14:02:00 Fire Safety Assessment: C--Open oxygen or nitrous oxide is being used. 14:02:02 Physical assessment completed. ASA score P 2 - A patient with mild systemic disease as per Mark Saucedo MD. 14:02:05 Sedation plan: TIVA Medication:Propofol 14:02:36 Procedure started. 14:03:03 ALVA 14:03:05 Jeri [place] Hand Ii Cutter present for ALVA. 14:03:24 ALVA started. 14:11:17 ALVA completed. 14:11:18 [employer] REP PRESENT FOR CARDIOVERSION. 14:11:19 ------Cardioversion------ 14:11:21 Quick combo pads placed on patients chest and back. 14:12:07 Defibrillator synced and charged to 200 Joules. 14:12:34 Shock delivered. 14:12:48 Patient cardioverted to sinus rhythm , paced. 14:13:18 Procedure ended.(Physican Out) ::54 Fluoroscopy time 00.00 minutes. ::55 Fluoroscopy dose: 0 mGy 14:13:55 Flurop Dose total: 0 14:14:06 Post-procedure physical assessment completed. ASA score P 2 - A patient with mild systemic disease as per Mark Saucedo MD. 14:14:10 Post procedure rhythm: sinus rhythm , paced 14:14:12 Estimated blood loss: 0 ml 14:14:13 Patient needs reinforcement of post procedure teaching. 14:14:13 Post procedure instruction explained to patient.Patient verbalizes understanding. 14:14:20 Procedure type changed to Cath procedure, Diagnostic procedure, Cardioversion External, ALVA 14:14:32 Procedure and supply charges have been captured, reviewed, submitted and are correct. 14:14:34 Procedure Complication : No complications 14:14:38 ALVA Findings: other (see MD operative note) 14:14:39 Operative report dictated upon procedure completion. 14:14:39 See physician's report for complete and final results. 14:14:43 Report given to Med II. 14:14:45 Patient transfered to Med II with Bed. 14:19:54 Procedure ended. 14:19:54 Full Disclosure recording stopped 14:20:58 Vital chart was stopped 14:21:01 End room use (Document Last) 14:21:10 End room use (Document Last) 14:21:49 End room use (Document Last) Device Usage Item Manufacture Quantity Catalog Hospital Part Current Minimal Lot# / Name Number Charge Number Stock Stock Juani al# Code viaCycle 1 [id number] Combo Signature Audit Conrad Stage Time Signature Unsigned Intra-Procedure 12/13/2019 Destiney Apple 2:21:10 PM RT(R) Intra-Procedure 12/13/2019 Vesta Villeda RN 2:21:49 PM Intra-Procedure 12/13/2019 Mark Smiley 2:22:06 PM Gabriele [address] [id number] [place] [address]
[~2019-12-08 13:04] MED LIST changes: +LASIX40 MG PO
[2019-12-08 14:01] LABS: BASOPHILS 0.6 % (0-2); HEMATOCRIT 37.3 % (42.0-54.0); HEMOGLOBIN 12.7 g/dL (13.5-17.5); LYMPHOCYTES 14.5 % (15-50); MCH 27.3 pg (26.0-34.0); MCV 80.2 fL (80.0-100.0); MEAN PLATELET VOLUME 11.1 fL (7.4-10.4); MONOCYTES 8.4 % (2-11); NEUTROPHILS 74.5 % (40-80); PLATELET COUNT 126 10x3/uL (130-400); RBC 4.65 10x6/uL (4.20-6.10); RDW 15.7 % (11.5-14.5); WBC 4.9 10x3/uL (4.8-10.8)
[2019-12-08 14:12] LABS: ANION GAP 13.8 mmol/L (8-16); CALCIUM 8.7 mg/dL (8.5-10.1); CREATININE - SERUM 1.9 mg/dL (0.6-1.3); POTASSIUM - SERUM 3.8 mmol/L (3.5-5.1)
--- NOTE | 2019-12-08 14:16 | NUR ---
HOMEHEALTH CALLED REPORTS THEY ARE UNABLE TO ADMIT FOR HOME HEALTH. RECOMMENDS ER FOR REHAB EVAL
[2019-12-08 14:24] LABS: ALBUMIN 3.4 g/dL (3.4-5.0); BILIRUBIN - TOTAL 1.63 mg/dL (0.2-1.3); PROTEIN - SERUM 6.6 g/dL (6.4-8.2)
--- NOTE | 2019-12-08 19:18 | NUR ---
RECEIVED BEDSIDE REPORT. PATIENT IS ALERT AND ORIENTED, SITTING UP IN BED. RESPIRATIONS ARE EVEN AND UNLABORED. NO S/S OF DISTRESS. NO C/O PAIN. CALL LIGHT WITHIN REACH. WILL CPOC.
[2019-12-09 04:00] VITALS: BP 99/73
[2019-12-09 04:17] LABS: BASOPHILS 0.6 % (0-2); EOSINOPHILS 3.7 % (0-7); HEMATOCRIT 36.7 % (42.0-54.0); HEMOGLOBIN 12.1 g/dL (13.5-17.5); IMMATURE GRANULOCYTES 0.2 % (0-5); LYMPHOCYTES 14.2 % (15-50); MCH 26.9 pg (26.0-34.0); MCV 81.6 fL (80.0-100.0); MEAN PLATELET VOLUME 11.6 fL (7.4-10.4); MONOCYTES 8.6 % (2-11); NEUTROPHILS 72.7 % (40-80); PLATELET COUNT 128 10x3/uL (130-400); RDW 15.9 % (11.5-14.5); WBC 4.9 10x3/uL (4.8-10.8)
[2019-12-09 04:46] LABS: ANION GAP 12.1 mmol/L (8-16); CARBON DIOXIDE 24.7 mmol/L (21.0-32.0); CREATININE - SERUM 1.6 mg/dL (0.6-1.3); MAGNESIUM - SERUM 2.2 mg/dL (1.8-2.4); PHOSPHOROUS 3.9 mg/dL (2.5-4.9); POTASSIUM - SERUM 3.8 mmol/L (3.5-5.1)
[2019-12-09 04:55] LABS: BILIRUBIN NEGATIVE (NEGATIVE); GLUCOSE NEGATIVE (NEGATIVE); KETONE NEGATIVE (NEGATIVE); NITRITE NEGATIVE (NEGATIVE); RED CELLS - URINE >50 /hpf (0-5); UROBILINOGEN NORMAL (NORMAL)
--- NOTE | 2019-12-09 07:10 | NUR ---
REPORT RECEIVED FROM RETAIL SALESMAN AND PATIENT CARE ASSUMED. PATIENT SITYING UP IN BS CHAIR AWAKE, ALERT AND ORIENTED X 4. PATIENT IS STABLE AND VSS. PATIENT DENIES ANY NEEDS OR PAIN. WILL CONTINUE WITH PLAN OF CARE AND CALL LIGHT IN REACH.
[2019-12-09 09:32] VITALS: BP 112/83
--- NOTE | 2019-12-09 11:24 | NUR ---
PATIENT CONTINUES TO SIT UP IN BS CHAIR. PATIENT DENIES ANY NEEDS OR PAIN. ASSESSMENT COMPLETED. WILL CONTINUE TO [facility]. SR UP X 2 BED IN LOW POSITION AND CALL LIGHT IN REACH.
[2019-12-09 12:00] VITALS: BP 103/73
--- NOTE | 2019-12-09 12:37 | NUR ---
REVIEWED PATIENT'S CHART EXTENSIVELY - PATIENT IS A CANDIDATE FOR OUTPATIENT CARDIAC REHAB DUE TO HIS CHF WITH EF=15% AND [employer]-III/IV. I SPOKE WITH THE CASE YERAYNA AND PATIENT DOES QUALIFY FOR SCAT. THIS MAY BE AN OPTION IF CAN NOT FIND AN INPATIENT CARDIAC REHAB FOR PATIENT.
[2019-12-09 12:55] VITALS: Ht 190.5 cm; Wt 130.2 kg
--- NOTE | 2019-12-09 14:30 | NUR ---
CALLED TO PATIENT ROOM. PATIENT ON PHONE WITH UROLOGIST DR JUAN R HALL MD IN [place]. THIS NURSE SPOKE WITH DR HALL AND ANSWERED QUESTIONS TO SATISFACTION. DR HALL LET THE MEDICAL EXCHANGE NUMBER IN CASE SHE IS NEEDED: [phone].
--- NOTE | 2019-12-09 14:54 | NUR ---
Rehab Prescreening Consult recieved and the chart has been reviewed. He is requesting cardiac rehab, the acute rehab at [facility] is not a cardiac specific rehab. He is also [facility] managed Medicare and will require a preauth for rehab. He has a PT eval, but his OT eval is still pending. Once completed information will be submitted the [facility] for their review. Flora Ramirez RN Clinical Liaison, Rehab
--- NOTE | 2019-12-09 15:54 | MORECARE ---
CASE MANAGEMENT DISCHARGE SUMMARY PATIENT: ZEYNEP SKY JR UNIT: [id number] ADM DATE: 12/08/19 AGE: 69 : 52 SEX: M ROOM/BED: D.2114 AUTHOR: JOESPH THIBODEAUX PHYSICIAN: REFERRING PHYSICIAN: RODRIGO GRAY MD DATE OF SERVICE: 12/09/19 Discharge Plan Patient Name: ZEYNEP SKY Facility: [facility]:[place] : 1950 Planned Disposition: Inpatient Rehab Anticipated Discharge Date: Discharge Date: Expected LOS: Initial Reviewer: [email or web address] Initial Review Date: 12/08/2019 Generated: 12/09/19 4:54 pm [facility] - Discharge Planning Initial Assessment Updated by [email or web address]: April Faith on 12/09/19 3:47 pm * Is the patient Alert and Oriented? Yes * How many steps to enter\exit or inside your home? 0/0 * PCP Dr. Esteves in [place] * Pharmacy [facility] in [place] * Preadmission Environment Home with Family * ADLs Independent * Equipment Catheter Supplies * List name and contact numbers for known caregivers / representatives who currently or will assist patient after discharge: Molly Sky - mother - [phone] * Verbal permission to speak to the caregivers and representatives has been obtained from the patient. Yes * Community resources currently utilized Home Health * Please name any agencies selected above. [facility] * Additional services required to return to the preadmission environment? No * Can the patient safely return to the preadmission environment? Yes * Has this patient been hospitalized within the prior 30 days at any hospital? Yes External Providers External Provider: [employer] Next Contact Date: Service Request Date: Service Type: Resolution: Reviewer: Comments: Coverage Notice Reviewer: [id number] - April Faith Notice Issued Date-Time: 12/09/2019 15:42 Notice Type: Patient Choice Letter Notice Delivered To: Patient Relationship to Patient: Self Process Project Engineer Name: Delivery Method: HAND - Hand Delivered Jessica Days: Prior Verbal Notification: Recipient Understood Notice: Yes Recipient Signature: Yes Med Rec Note Co-signed by Attending: Coverage Notice Comment: TERESA for inpatient rehab at [facility] or [facility] Patient Name: ZEYNEP SKY Page [id number] at 1554 All edits/amendments must be made on the electronic document DICTATION DATE: 12/09/191553 AIR BOATSWAIN: IVANA 12/09/191553 RPT#: [id number] DC DATE: STATUS: ADM IN [facility] [address] [place] [address] END OF REPORT
[2019-12-09 16:00] VITALS: BP 91/58
--- NOTE | 2019-12-09 16:05 | MORECARE ---
CASE MANAGEMENT DISCHARGE SUMMARY PATIENT: ZEYNEP SKY JR UNIT: [id number] ADM DATE: 12/08/19 AGE: 69 : 54 SEX: M ROOM/BED: D.1344 AUTHOR: JOESPH THIBODEAUX PHYSICIAN: REFERRING PHYSICIAN: RODRIGO GRAY MD DATE OF SERVICE: 12/09/19 Discharge Plan Patient Name: ZEYNEP SKY [facility] [facility] 1950 Planned Disposition: Inpatient Rehab Anticipated Discharge Date: Discharge Date: Expected LOS: Initial Reviewer: [id number] Initial Review Date: 12/08/2019 Generated: 12/09/19 5:04 pm Comments DCP- Discharge Planning Updated by [email or web address]: April Faith on 12/09/19 2:[address] Patient Name: ZEYNEP SKY Admission Status: ER Accout number: [id number] Admission Date: 12-08-2019 : 1950 Admission Diagnosis:HEART FAILURE, UNSPECIFIED Attending: MADHU Current LOS: 1 Anticipated DC Date: Planned Disposition: Inpatient Rehab Primary Insurance: [facility] MEDICARE SOLUTIONS Discharge Planning Comments: CM met with patient to discuss discharge planning/needs. He states he would like to go to an inpatient rehab to get stronger prior to discharging home. I informed him of inpatient rehab vs SNF. He does not want [facility] care or a skilled facility. He states "I just need something for a couple of weeks." TERESA for [facility] inpatient rehab signed. I informed him that his insurance would need to authorize inpatient rehab prior to be admitted there. I called [facility] and spoke with Elzbieta. Elzbieta states as far as she knows, their are not any inpatient cardiac rehab facilities. I spoke with Kymberly Hopper her at [facility], cardiac rehab, and she states she does not know of any inpatient cardiac rehab units. Rehab prescreen ordered. He will need an OT and PT need for insurance to authorize inpatient rehab. CM will continue to follow and assist with discharge planning/needs. Surveillance Specialist: April Faith DCPIA - Discharge Planning Initial Assessment Updated by [id number]: April Faith on 12/09/19 3:47 pm * Is the patient Alert and Oriented? Yes * How many steps to enter\\exit or inside your home? 0/0 * PCP Dr. Esteves in [place] * Pharmacy [facility] in [place] * Preadmission Environment Home with Family * ADLs Independent * Equipment Catheter Supplies * List name and contact numbers for known caregivers / representatives who currently or will assist patient after discharge: Molly Sky - mother - [phone] * Verbal permission to speak to the caregivers and representatives has been obtained from the patient. Yes * Community resources currently utilized Home Health * Please name any agencies selected above. [facility] * Additional services required to return to the preadmission environment? No * Can the patient safely return to the preadmission environment? Yes * Has this patient been hospitalized within the prior 30 days at any hospital? Yes Coverage Notice Reviewer: [id number] Evan Faith Notice Issued Date-Time: 12/09/2019 15:42 Notice Type: Patient Choice Letter Notice Delivered To: Patient Relationship to Patient: Self Water Registrar Name: Delivery Method: HAND - Hand Delivered Jessica Days: Prior Verbal Notification: Recipient Understood Notice: Yes Recipient Signature: Yes Med Rec Note Co-signed by Attending: Coverage Notice Comment: TERESA for inpatient rehab at [facility] or [facility] Last DP export: 12/09/19 2:54 pm Patient Name: ZEYNEP SKY Page [id number] at 1605 All edits/amendments must be made on the electronic document DICTATION DATE: 12/09/19 1605 PROCESSOR SOLID PROPELLANT: IVANA 12/09/19 1605 RPT#: [id number] DC DATE: STATUS: ADM IN [place] [address] [place] [address] END OF REPORT
--- NOTE | 2019-12-09 20:00 | NUR ---
INITIAL REPORT AND ASSESSMENT COMPLETED. PT ALERT/ORIENTED AND SITTING UP IN BEDSIDE RECLINER. GEORGE PATENT TO BEDSIDE DRAIN BAG. O2 PRN SOB. CURRENTLY ON ROOM AIR. SR/PACED ON TELEMETRY. CPOC.
[2019-12-09 20:30] VITALS: BP 92/64
--- NOTE | 2019-12-09 22:00 | NUR ---
BEDTIME MEDS GIVEN. PT REFUSED METOPROLOL. STATES HE FEELS IT IS MAKING HIM DIZZY AND WEAK AND DOES NOT WANT TO TAKE IT.
[2019-12-10 00:30] VITALS: BP 94/63
[2019-12-10 04:30] VITALS: BP 96/63
[2019-12-10 09:44] VITALS: BP 102/64
--- NOTE | 2019-12-10 09:51 | NUR ---
AM MEDS GIVEN AT THIS TIME. PT UP TO CHAIR. A/O X4, A LITTLE SOB ON 3L. LT HAND IV SL. GEORGE DRAINING DARK URINE TO GRAVITY. PT DENIES ANY NEEDS AT THIS TIME. CALL LIGHT IN REACH, NAD NOTED,W ILL CONTINUE TO MONITOR.
[2019-12-10 11:06] LABS: BASOPHILS 0.7 % (0-2); EOSINOPHILS 2.6 % (0-7); HEMATOCRIT 38.7 % (42.0-54.0); HEMOGLOBIN 12.9 g/dL (13.5-17.5); IMMATURE GRANULOCYTES 0.2 % (0-5); LYMPHOCYTES 12.9 % (15-50); MCH 27.1 pg (26.0-34.0); MCHC 33.3 g/dL (31.0-37.0); MCV 81.3 fL (80.0-100.0); MEAN PLATELET VOLUME 11.7 fL (7.4-10.4); NEUTROPHILS 74.6 % (40-80); PLATELET COUNT 125 10x3/uL (130-400); RBC 4.76 10x6/uL (4.20-6.10); WBC 4.6 10x3/uL (4.8-10.8)
[2019-12-10 11:23] LABS: ALBUMIN 3.2 g/dL (3.4-5.0); ANION GAP 11.8 mmol/L (8-16); BILIRUBIN - TOTAL 1.94 mg/dL (0.2-1.3); CALCIUM 8.9 mg/dL (8.5-10.1); CARBON DIOXIDE 25.8 mmol/L (21.0-32.0); CREATININE - SERUM 1.7 mg/dL (0.6-1.3); POTASSIUM - SERUM 3.6 mmol/L (3.5-5.1); PROTEIN - SERUM 6.6 g/dL (6.4-8.2)
[2019-12-10 12:40] VITALS: BP 105/73
[2019-12-10 17:15] VITALS: BP 108/72
--- NOTE | 2019-12-10 20:00 | NUR ---
INITIAL ROUNDS AND ASSESSMENT COMPLETED. PT RESTING IN BEDSIDE CHAIR. ALERT/ORIENTED. NONLABORED RESPIRATIONS ON ROOM AIR. CPOC.
[2019-12-10 20:30] VITALS: BP 96/73
--- NOTE | 2019-12-10 21:18 | NUR ---
DR MARINA WALL.
--- NOTE | 2019-12-10 22:06 | NUR ---
BEDTIME MEDS GIVEN. PT STILL DECLINES TO TAKE THE METOPROLOL AND STATES HE DID SPEAK TO THE MD THIS MORNING ABOUT IT. ALL OTHER MEDS TAKEN.
--- NOTE | 2019-12-11 00:05 | NUR ---
SITTING UP IN BEDSIDE RECLINER. LOOKING UP INFORMATION ON HIS COMPUTER. VOICING NO NEEDS. CPOC.
[2019-12-11 00:30] VITALS: BP 111/83
--- NOTE | 2019-12-11 03:52 | NUR ---
PT HAS BEEN HAVING A TRICKLING NOSE BLEED. STATES THIS IS NOT ABNORMAL. WILL MONITOR.
[2019-12-11 04:34] VITALS: BP 108/74
[2019-12-11 04:49] LABS: BASOPHILS 0.5 % (0-2); EOSINOPHILS 2.4 % (0-7); HEMATOCRIT 37.6 % (42.0-54.0); HEMOGLOBIN 12.5 g/dL (13.5-17.5); IMMATURE GRANULOCYTES 0.3 % (0-5); LYMPHOCYTES 14.3 % (15-50); MCH 27.2 pg (26.0-34.0); MCHC 33.2 g/dL (31.0-37.0); MCV 81.7 fL (80.0-100.0); MEAN PLATELET VOLUME 11.7 fL (7.4-10.4); MONOCYTES 10.4 % (2-11); NEUTROPHILS 72.1 % (40-80); PLATELET COUNT 135 10x3/uL (130-400); RDW 16.3 % (11.5-14.5)
[2019-12-11 04:52] LABS: WBC 6.2 10x3/uL (4.8-10.8)
[2019-12-11 04:57] LABS: ANION GAP 13.1 mmol/L (8-16); CARBON DIOXIDE 25.6 mmol/L (21.0-32.0); CREATININE - SERUM 1.6 mg/dL (0.6-1.3); MAGNESIUM - SERUM 2.4 mg/dL (1.8-2.4); POTASSIUM - SERUM 3.7 mmol/L (3.5-5.1)
--- NOTE | 2019-12-11 08:19 | NUR ---
AM MEDS GIVEN AT THIS TIME. PT UP TO CHAIR, A/O X4, RESP EVEN AND NONLABORED ON RA. LT HAND IV SL. MONITOR SHOWING UAF WITH BBB WITH RATE OF 119. PT DENIES ANY NEEDS AT THIS TIME. CALL LIGHT IN REACH, NAD NOTED, WILL CONTINUE TO MONITOR.
[2019-12-11 08:42] VITALS: BP 111/56
[2019-12-11 13:55] VITALS: BP 99/68
[2019-12-11 16:16] VITALS: BP 112/81
--- NOTE | 2019-12-11 18:43 | NUR ---
PT UP TO CHAIR, DENIES ANY NEEDS AT THIS TIME. CALL LIGHT IN REACH.
--- NOTE | 2019-12-11 19:06 | NUR ---
PT ALERT AND OX4 UP TO CHAIR WITH NO COMPLAINTS AND DENIES ISSUES WITH DEFIBULATER TODAY..NEEDS SEEN TO BED IS LOW AND LOCKED PT IS HOLDING CALL LIGHT
[2019-12-11 20:30] VITALS: BP 110/72
[2019-12-12 00:30] VITALS: BP 102/75
--- NOTE | 2019-12-12 02:53 | NUR ---
I have reviewed this patient and I concur with the Shift Assessment completed by the Licensed Practical Nurse today this shift.
[2019-12-12 04:30] VITALS: BP 110/53
--- NOTE | 2019-12-12 07:18 | NUR ---
RECEIVED PT IN SITTING IN CHAIR DOZING RESP UNLABORED SKIN W/D COLOR WNL DENIES ANY NEEDS OR DISCOMFORT
[2019-12-12 07:51] VITALS: BP 95/66
[2019-12-12 08:04] LABS: BASOPHILS 0.8 % (0-2); HEMATOCRIT 34.6 % (42.0-54.0); HEMOGLOBIN 11.4 g/dL (13.5-17.5); IMMATURE GRANULOCYTES 0.2 % (0-5); MCH 26.9 pg (26.0-34.0); MCHC 32.9 g/dL (31.0-37.0); MCV 81.6 fL (80.0-100.0); MONOCYTES 7.6 % (2-11); NEUTROPHILS 70.4 % (40-80); PLATELET COUNT 141 10x3/uL (130-400); RBC 4.24 10x6/uL (4.20-6.10); RDW 16.3 % (11.5-14.5)
[2019-12-12 08:28] LABS: ANION GAP 12.6 mmol/L (8-16); CALCIUM 8.8 mg/dL (8.5-10.1); CREATININE - SERUM 1.4 mg/dL (0.6-1.3); MAGNESIUM - SERUM 2.4 mg/dL (1.8-2.4); POTASSIUM - SERUM 3.6 mmol/L (3.5-5.1)
--- NOTE | 2019-12-12 10:09 | NUR ---
Nutrition Follow-up: Overall good PO intake. Diet: Cardiac PO intake: 94% avg x 9 meals Wt: 287# (12/08) Labs reviewed Meds noted: Lasix, Protonix, electrolyte protocol -Need new wt; noted daily wts ordered. -RD following.
--- NOTE | 2019-12-12 10:12 | NUR ---
Rehab Note- Continue to follow at this time. Per Cardiac note plan for ALVA/Cardioversion tomorrow 12/12. Thank you for this referral! Estella Reyes RN Clinical Liaison, [facility] Rehab
[2019-12-12 11:48] VITALS: BP 122/77
[2019-12-12 15:09] VITALS: BP 103/70
--- NOTE | 2019-12-12 15:36 | NUR ---
OT NOTE: PT COMPLETED ADL MOB WITH CGA. PT COMPLETED SITTING BALANCE WITH SPV. PT COMPLETED BUE AROM EXS WHILE SITTING IN CHAIR. [phone] THANK YOU,ADA CASANOVA
--- NOTE | 2019-12-12 19:22 | NUR ---
ALERT AND ORIENTED EXPRESSES SOME UNDERSTANDING OF AM PROCEDURES. UOP IN CHAIR WITH CALL LIGHT BED IS LOW AND LOCKED O2 AT 2
[2019-12-12 20:00] VITALS: BP 118/86
[2019-12-13] VITALS: BP 105/78
--- NOTE | 2019-12-13 03:24 | NUR ---
I have reviewed this patient and I concur with the Shift Assessment completed by the Licensed Practical Nurse today this shift.
[2019-12-13 04:00] VITALS: BP 100/866
[2019-12-13 05:48] LABS: BASOPHILS 0.6 % (0-2); EOSINOPHILS 1.6 % (0-7); HEMATOCRIT 36.5 % (42.0-54.0); IMMATURE GRANULOCYTES 0.2 % (0-5); LYMPHOCYTES 13.9 % (15-50); MCH 26.6 pg (26.0-34.0); MCHC 32.9 g/dL (31.0-37.0); MCV 80.9 fL (80.0-100.0); MEAN PLATELET VOLUME 11.5 fL (7.4-10.4); MONOCYTES 9.9 % (2-11); NEUTROPHILS 73.8 % (40-80); PLATELET COUNT 128 10x3/uL (130-400); RBC 4.51 10x6/uL (4.20-6.10)
[2019-12-13 05:56] LABS: ANION GAP 11.9 mmol/L (8-16); CALCIUM 8.4 mg/dL (8.5-10.1); CARBON DIOXIDE 27.8 mmol/L (21.0-32.0); CREATININE - SERUM 1.7 mg/dL (0.6-1.3); MAGNESIUM - SERUM 2.1 mg/dL (1.8-2.4); POTASSIUM - SERUM 3.7 mmol/L (3.5-5.1)
[2019-12-13 10:03] VITALS: BP 115/71
--- NOTE | 2019-12-13 10:38 | NUR ---
AMBULATES HALLWAY WITH PT ASSIST.
[2019-12-13 13:33] VITALS: BP 102/72
--- NOTE | 2019-12-13 13:53 | NUR ---
LEAVING FOR SIGN PAINTER HELPER BY BED.
--- NOTE | 2019-12-13 14:38 | NUR ---
BACK FROM BODY DESIGN CHECKER. VS WNL. TELEMETRY SR/PACED HR 85. WILL CONT. PLAN OF CARE.
--- NOTE | 2019-12-13 15:54 | NUR ---
OT NOTE: (AM) PT COMPLETED ADL MOB WITH CGA. PT COMPLETED SUPINE TO SIT WITH SBA/CGA. PT REQUIRED REST BREAKS SECONDARY TO SOB. PT COMPLETED UE AROM EXS. (PM) PT COMPLETED UB HYGIENE TASKS WITH SETUP. PT COMPLETED UE AROM AXS. [phone] THANK YOU,ADA CASANOVA
[2019-12-13 18:29] VITALS: BP 103/69
--- NOTE | 2019-12-13 19:00 | NUR ---
EVENING ROUNDS COMPLETE. PT SITTING UP IN BED, NO SIGNS OF DISTRESS. PT DENIES ANY PAIN OR NEEDS AT THIS TIME. CL IN REACH, BED IN LOWEST POSITION.
--- NOTE | 2019-12-13 19:30 | NUR ---
PT PIV TO L HAND INFILTRATED, REMOVED. NEW 20G PIV STARTED IN L FOREARM AT THIS TIME. PT TOLERATED WELL. NO SIGNS OF DISTRESS. CL IN REACH, BED IN LOWEST POSITION.
[2019-12-13 20:00] VITALS: BP 110/73
--- NOTE | 2019-12-13 20:45 | NUR ---
PT STARTED TO HAVE A NOSE BLEED, AND VOMIT. PRN ZOFRAN GIVEN. TISSUES PROVIDED.
--- NOTE | 2019-12-13 20:48 | NUR ---
PT DENIES ANY MORE NAUSEA AT THIS TIME. CL IN REACH, BED IN LOWEST POSITION.
[2019-12-14] VITALS: BP 110/69
[2019-12-14 04:00] VITALS: BP 102/67
[2019-12-14 06:24] LABS: ANION GAP 13.4 mmol/L (8-16); CALCIUM 8.9 mg/dL (8.5-10.1); CARBON DIOXIDE 25.7 mmol/L (21.0-32.0); CREATININE - SERUM 1.9 mg/dL (0.6-1.3); MAGNESIUM - SERUM 2.3 mg/dL (1.8-2.4); POTASSIUM - SERUM 4.1 mmol/L (3.5-5.1)
[2019-12-14 07:15] LABS: BASOPHILS 0.7 % (0-2); EOSINOPHILS 0.7 % (0-7); HEMATOCRIT 36.4 % (42.0-54.0); HEMOGLOBIN 12.2 g/dL (13.5-17.5); IMMATURE GRANULOCYTES 0.2 % (0-5); LYMPHOCYTES 16.1 % (15-50); MCH 27.1 pg (26.0-34.0); MCHC 33.5 g/dL (31.0-37.0); MCV 80.7 fL (80.0-100.0); MEAN PLATELET VOLUME 12.3 fL (7.4-10.4); MONOCYTES 9.5 % (2-11); NEUTROPHILS 72.8 % (40-80); PLATELET COUNT 143 10x3/uL (130-400); RBC 4.51 10x6/uL (4.20-6.10); RDW 15.9 % (11.5-14.5); WBC 5.5 10x3/uL (4.8-10.8)
[2019-12-14 07:45] VITALS: BP 109/73
--- NOTE | 2019-12-14 09:31 | TEE ---
PATIENT:ZEYNEP SKY JR MEDICAL RECORD: [id number] LOCATION:D. D.211 AGE OF PATIENT: 69 ADMISSION DATE: 12/08/19 SEX: M REFERRING PHYSICIAN: INTERPRETING PHYSICIAN: BOB DRIVER MD TRANSESOPHAGEAL ECHOCARDIOGRAM Date: 12/13/19 ALVA CHARGE Y INDICATIONS: AFIB PREMEDICATIONS: PATIENT'S RESPONSE PROCEDURE DOPPLER MEASUREMENTS: LVIT LA PA RA LVOT RVOT Asc. Ao AV Gradient Peak AV Mean AV Area MV Gradient Peak MV Mean MV Area INTERPRETATION: Doppler: 2-D: COLOR FLOW DOPPLER NORMAL SALINE STUDY: MISCELLANOUS: DIAGNOSIS: PLAN: Web Content Manager:3 Dr. Vasquez Gas Dispenser: Adama LEWIS COMMENTS: PACS DATE OF SERVICE: 12/13/2019 PROCEDURE: Transesophageal echo. SUMMARY OF PROCEDURE: After general sedation via anesthesia via TIVA, transesophageal Omniplane probe was placed in the distal esophagus and proximal stomach without difficulty. FINDINGS: No LVH. LV internal dimensions appeared dilated. LV is severely TRANSESOPHAGEAL ECHOCARDIOGRAM REPORT [id number] ZEYNEP SKY globally hypokinetic. Estimated EF is 15%. Aortic valve is tricuspid with good valve excursion. Moderate AI is present by color flow imaging. Left atrium appears normal. Left atrial appendage is well visualized with good contractility in the left atrial appendage and no evidence of thrombus. Mitral valve appears normal. Moderate MR. Right-sided chambers appear normal to mildly dilated, moderate TR. At the end of procedure, transesophageal Omniplane probe was turned posteriorly and this showed no atherosclerotic debris in the descending aorta. TRANSINT:[id number] Voice Confirmation ID: [id number] DOCUMENT ID: [id number] at 0931 CC: [id number] DICTATION DATE: 12/13/19 1416 INFORMATION SERVICES VICE PRESIDENT: 12/14/19 0323 ADM IN [facility] [address] [place] [address]
--- NOTE | 2019-12-14 09:31 | OP ---
PATIENT NAME: JULIEN PASCUAL JR MEDICAL RECORD: [id number] :54 LOCATION:D. D.2114 ADMISSION DATE:12/08/19 SURGEON: BOB DRIVER MD DATE OF OPERATION: 12/13/2019 Procedure: Cardioversion DESCRIPTION OF PROCEDURE: After general sedation via TIVA via anesthesia, a single synchronized shock was successful in restoring atrial fibrillation to normal sinus rhythm. IMPRESSION: Successful cardioversion on Julien Pascual. During the procedure, the patient was monitored continuously with pulse oximetry, telemetry, and blood pressure monitoring. TRANSINT:[id number] Voice Confirmation ID: [id number] DOCUMENT ID: [id number] BOB DRIVER MD at 0931 CC: [id number] DICTATION DATE: 12/13/19 1417 PAYMENT POSTER: 12/14/19 0102 ADM IN [place] [id number] [place] [address]
--- NOTE | 2019-12-14 10:34 | NUR ---
UP AMBULATING HALLWAY WITH PT ASSIST. C/O DIZZINESS. 02 SAT 87 RA. ASSISTED TO CHAIT. 02 2L NC AP[LIED. WILL MONITOR.
--- NOTE | 2019-12-14 11:37 | NUR ---
OT NOTE: UPON ENTERING ROOM, PT WAS AMB INDEP AND PUSHING IV POLE. HE REPORTS THAT HE IS FEELING BETTER TODAY. STATES THAT HE HAS BEEN UP TO BATHROOM AND BEEN SITTING UP MOST OF THE MORNING. ASSISTED PT TO PRACHI GOWN (IN BACK) IN ORDER TO AMB INTO HALLWAY. UPON STANDING, PT WAS SLIGHTLY SOB.. PT REPORTED THAT HE FELT GOOD, BUT STILL SOB.. STOOD FOR APPROX 3 MIN THEN AMB INTO HALLWAY. SOB INCREASED AND PT REPORTED FEELING DIZZY AFTER APPROX 25 FT. 02 CHECKED AND HAD DROPPED TO LOW 80S..PROVIDED PT WITH CHAIR AND SATS INCREASED TO 89%..PROVIDED 02 AND SATS INCREASED TO 95% IN JUST A FEW SECONDS. ALLOWED PT TO REST AND HE WAS ABLE TO AMB BACK TO ROOM WITH 02 AT 2L AND SATS REMAINED IN MID 90S, HOWEVER, PT STILL VERY SOB. THIS IS SIGNIFICANT CHANGED FROM YESTERDAY WHERE PT AMB OVER 150 FT WITH ONLY MINIMAL FATIGUE AND SATS REMAINED IN 90S. SANTY VANEGAS, OTR/L [phone]
[2019-12-14 12:37] VITALS: BP 125/81
--- NOTE | 2019-12-14 13:00 | NUR ---
STARES HE FEELS LIKE HE IS GOING TO BLACK OUT. B/P 105/72, HR 89, O2 SAt95% on 2l. MOISES POTTS NOTIFIED. GLUCOSE 153. URINE OP BLOODY . WILL CONT. TO MONITOR.
--- NOTE | 2019-12-14 15:26 | NUR ---
Rehab Note- PreAuth has been initiated & clinicals faxed for review. Awaiting determination for possible auth for inpatient acute rehab stay. Thank you for this referral! Estella Reyes RN Clinical Liaison, [facility] Rehab
[2019-12-14 16:20] VITALS: BP 94/73
[2019-12-14 20:00] VITALS: BP 107/66
[2019-12-15 04:00] VITALS: BP 102/67
[2019-12-15 06:52] LABS: ANION GAP 10.4 mmol/L (8-16); CALCIUM 8.5 mg/dL (8.5-10.1); CARBON DIOXIDE 29.2 mmol/L (21.0-32.0); CREATININE - SERUM 2.3 mg/dL (0.6-1.3); MAGNESIUM - SERUM 2.2 mg/dL (1.8-2.4); POTASSIUM - SERUM 3.6 mmol/L (3.5-5.1)
[2019-12-15 07:12] LABS: HEMATOCRIT 36.7 % (42.0-54.0); MCH 26.7 pg (26.0-34.0); MCHC 32.7 g/dL (31.0-37.0); MCV 81.6 fL (80.0-100.0); MEAN PLATELET VOLUME 12.8 fL (7.4-10.4); NEUTROPHILS 72.5 % (40-80); PLATELET COUNT 125 10x3/uL (130-400); RDW 16.7 % (11.5-14.5); WBC 4.9 10x3/uL (4.8-10.8)
[2019-12-15 08:00] VITALS: BP 90/60
--- NOTE | 2019-12-15 08:05 | NUR ---
ASSESSMENT DONE. DENIES NEEDS
--- NOTE | 2019-12-15 10:05 | NUR ---
I have reviewed this patient and I concur with the Shift Assessment completed by the Licensed Practical Nurse today this shift.
[2019-12-15 12:00] VITALS: BP 96/68
--- NOTE | 2019-12-15 12:33 | NUR ---
Rehab Note- Received voicemail from merchandising representative of [facility] stating that the patient has been denied an inpatient acute rehab stay stating that doesn't need close supervision of a physician and needs can be meet at a SNF level of care. A peer to peer can be set up by Thursday12/15/2019 @ 3938 by calling [phone] Ext [phone]. Spoke w/ RAMAN Chen to inform her of denial. Thank you for this referral! Estella Reyes RN Clinical Liaison, [facility] Rehab
--- NOTE | 2019-12-15 15:30 | NUR ---
OT NOTE: PT COMPLETED SIT TO STAND WITH SBA/CGA. PT COMPLETED ADL MOB WITH SBA/CGA. PT 02 SAT DECREASES WITH INCREASED ACTIVITY. PT 02 SATS MONITORED DURING SESSION. PT REQUIRED REST BREAKS. NIXON AWARE. [phone] THANK YOU,ADA CASANOVA
[2019-12-15 16:00] VITALS: BP 97/68
--- NOTE | 2019-12-15 16:41 | NUR ---
WITHOUT CHANGES OR DISTRESS NOTED AT THIS TIME. DENIES NEEDS
--- NOTE | 2019-12-15 19:10 | NUR ---
EVENING ROUNDS COMPLETE. PT SITTING UP IN CHAIR. AAOX4. NO SIGNS OF DISTRESS. PT DENIES ANY PAIN OR NEEDS AT THIS TIME. CL IN REACH, BED IN LOWEST POSITION.
[2019-12-15 20:00] VITALS: BP 96/69
[2019-12-16] VITALS: BP 102/63
[2019-12-16 04:00] VITALS: BP 123/96
[2019-12-16 11:13] LABS: ALBUMIN 3.2 g/dL (3.4-5.0); ANION GAP 10.3 mmol/L (8-16); BILIRUBIN - TOTAL 1.54 mg/dL (0.2-1.3); CALCIUM 8.3 mg/dL (8.5-10.1); CARBON DIOXIDE 28.3 mmol/L (21.0-32.0); CREATININE - SERUM 2.2 mg/dL (0.6-1.3); POTASSIUM - SERUM 3.6 mmol/L (3.5-5.1); PROTEIN - SERUM 6.6 g/dL (6.4-8.2)
--- NOTE | 2019-12-16 13:02 | NUR ---
Nutrition Follow-up: Diet: Cardiac PO intake: 100% x last 4 meals. Reports that his appetite is "okay." Last BM: "yesterday morning" per patient report WT: 287# (12/09/19); Admit WT: 287# (12/08/19), no new WT Meds noted: miralax, lasix Labs noted: Na 135(L), BUN 24(H), Cr 2.2(H), GFR 39(L), Glu 144(H), Alb 3.2(L) Recommend continue current diet. RD following.
[2019-12-16 13:27] VITALS: BP 107/73
[2019-12-16] MEDS ORDERED: MIRALAX17 GM PO (13:37)
[2019-12-16] MEDS ORDERED: PROTONIX40 MG PO (13:37)
[2019-12-16] MEDS ORDERED: MELATONIN 3 MG1 TAB PO (13:37)
--- NOTE | 2019-12-16 14:13 | MORECARE ---
CASE MANAGEMENT DISCHARGE SUMMARY PATIENT: ZEYNEP SKY JR UNIT: [id number] ADM DATE: 12/08/19 AGE: 69 : 52 SEX: M ROOM/BED: D.2114 AUTHOR: JOESPH THIBODEAUX PHYSICIAN: REFERRING PHYSICIAN: RODRIGO GRAY MD DATE OF SERVICE: 12/16/19 Discharge Plan Patient Name: ZEYNEP SKY Facility: [facility]:[place] : 1950 Planned Disposition: Inpatient Rehab Anticipated Discharge Date: Discharge Date: Expected LOS: Initial Reviewer: [email or web address] Initial Review Date: 12/08/2019 Generated: 12/16/19 3:12 pm Comments DCP- Discharge Planning Updated by [id number]: April Faith on 12/16/19 1:[address] Patient Name: ZEYNEP SKY Encounter No: [id number] : 1950 Primary Insurance: [facility] MEDICARE SOLUTIONS Anticipated DC Date: Planned Disposition: Inpatient Rehab External Planned Provider: : DCP follow-up note: Patient and family in agreement with discharge plan. No changes to plan. Discharging to inpatient rehab today at [facility]. Case management will follow and assist as needed. April Faith DCP- Discharge Planning Updated by [id number]: April Faith on 12/09/19 2:[address] Patient Name: ZEYNEP SKY Admission Status: ER Accout number: [id number] Admission Date: 12-08-2019 : 1950 Admission Diagnosis:HEART FAILURE, UNSPECIFIED Attending: MADHU Current LOS: 1 Anticipated DC Date: Planned Disposition: Inpatient Rehab Primary Insurance: [employer] MEDICARE SOLUTIONS Discharge Planning Comments: CM met with patient to discuss discharge planning/needs. He states he would like to go to an inpatient rehab to get stronger prior to discharging home. I informed him of inpatient rehab vs SNF. He does not want joint terminal attack controller care or a skilled facility. He states "I just need something for a couple of weeks." TERESA for [facility] inpatient rehab signed. I informed him that his insurance would need to authorize inpatient rehab prior to be admitted there. [facility] and spoke with Elzbieta. Elzbieta states as far as she knows, their are not any inpatient cardiac rehab facilities. I spoke with Kymberly Hopper her at [facility], cardiac rehab, and she states she does not know of any inpatient cardiac rehab units. Rehab prescreen ordered. He will need an OT and PT need for insurance to authorize inpatient rehab. CM will continue to follow and assist with discharge planning/needs. Inspector Mechanical: April Faith DCPIA - Discharge Planning Initial Assessment Updated by [id number]: April Faith on 12/09/19 3:47 pm * Is the patient Alert and Oriented? Yes * How many steps to enter\\exit or inside your home? 0/0 * PCP Dr. Esteves in [place] * Pharmacy [facility] in [place] * Preadmission Environment Home with Family * ADLs Independent * Equipment Catheter Supplies * List name and contact numbers for known caregivers / representatives who currently or will assist patient after discharge: Molly Sky - mother - [phone] * Verbal permission to speak to the caregivers and representatives has been obtained from the patient. Yes * Community resources currently utilized Home Health * Please name any agencies selected above. [facility] * Additional services required to return to the preadmission environment? No * Can the patient safely return to the preadmission environment? Yes * Has this patient been hospitalized within the prior 30 days at any hospital? Yes Coverage Notice Reviewer: [id number] Evan Faith Notice Issued Date-Time: 12/09/2019 15:42 Notice Type: Patient Choice Letter Notice Delivered To: Patient Relationship to Patient: Self Human Resources Support Specialist Name: Delivery Method: HAND - Hand Delivered Jessica Days: Prior Verbal Notification: Recipient Understood Notice: Yes Recipient Signature: Yes Med Rec Note Co-signed by Attending: Coverage Notice Comment: TERESA for inpatient rehab at [facility] or [facility] Reviewer: [id number] Evan Faith Notice Issued Date-Time: 12/16/2019 14:06 Notice Type: IM Discharge Notice Notice Delivered To: Patient Relationship to Patient: Self Human Resources Support Specialist Name: Delivery Method: HAND - Hand Delivered Jessica Days: Prior Verbal Notification: Recipient Understood Notice: Yes Recipient Signature: Yes Med Rec Note Co-signed by Attending: Coverage Notice Comment: IMM explained, signed, given, copy placed in MR Last DP export: 12/09/19 3:05 pm Patient Name: ZEYNEP SKY Page 16489 at 1413 All edits/amendments must be made on the electronic document DICTATION DATE: 12/16/191411 MAKER UP FOLDING: IVANA 12/16/191411 RPT#: [id number] DC DATE: STATUS: ADM IN [facility] [address] [place] [address] END OF REPORT
--- NOTE | 2019-12-16 14:29 | NUR ---
Rehab Note- Spoke w/ RAMAN Chen that stted she had a voicemail last PM from Aditi with [facility] that the denial had been overturned after peer to peer yesterday & auth #[id number] and f/u will be with Jessica Hutchinson phone #[phone] fax#[phone]. Thank you for this referral! Estella Reyes RN Clinical Liaison, [facility] Rehab
--- NOTE | 2019-12-16 15:27 | NUR ---
REPORT CALLED TO KRISTI ALVARADO IN [facility]. PT TO GO TO ROOM 1115.
--- NOTE | 2019-12-16 15:58 | NUR ---
PT TAKEN TO REHAB VIA WC WITH GEORGE CATHETER, TELEMTRY MONITOR. O2 AT 2L VIA NC AND WITH ALL BELONGINGS.
--- NOTE | 2019-12-17 17:48 | NUR ---
OT NOTE: (DOS 12/16/2019) PT COMPLETED SIT TO STANDS WITH CGA. PT COMPLETED ADL MOB WITH CGA. PT COMPLETED BUE AROM EXS WHILE SEATED. PT COMPLETED HAND/FACE HYGIENE WITH SETUP. [phone] THANK YOU,ADA CASANOVA
--- NOTE | 2019-12-19 08:56 | MORECARE ---
CASE MANAGEMENT DISCHARGE SUMMARY PATIENT: ZEYNEP SKY JR UNIT: [id number] ADM DATE: 12/08/19 AGE: 69 : 54 SEX: M ROOM/BED: D.2114 AUTHOR: JOESPH THIBODEAUX PHYSICIAN: REFERRING PHYSICIAN: RODRIGO GRAY MD DATE OF SERVICE: 12/19/19 Discharge Plan Patient Name: ZEYNEP SKY Facility: [facility]:[place] : 1950 Planned Disposition: Inpatient Rehab Anticipated Discharge Date: Discharge Date: 12/16/2019 Expected LOS: Initial Reviewer: [email or web address] Initial Review Date: 12/08/2019 Generated: 12/19/19 9:55 am Comments DCP- Discharge Planning Updated by [id number]: April Faith on 12/16/19 1:[address] Patient Name: ZEYNEP SKY Encounter No: [id number] : 1950 Primary Insurance: [facility] MEDICARE SOLUTIONS Anticipated DC Date: Planned Disposition: Inpatient Rehab External Planned Provider: : DCP follow-up note: Patient and family in agreement with discharge plan. No changes to plan. Discharging to inpatient rehab today at [facility]. Case management will follow and assist as needed. April Faith DCP- Discharge Planning Updated by [id number]: April Fiath on 12/09/19 2:[address] Patient Name: ZEYNEP SKY Admission Status: ER Accout number: [id number] Admission Date: 12-08-2019 : 1950 Admission Diagnosis:HEART FAILURE, UNSPECIFIED Attending: MADHU Current LOS: 1 Anticipated DC Date: Planned Disposition: Inpatient Rehab Primary Insurance: [employer] MEDICARE SOLUTIONS Discharge Planning Comments: CM met with patient to discuss discharge planning/needs. He states he would like to go to an inpatient rehab to get stronger prior to discharging home. I informed him of inpatient rehab vs SNF. He does not want residential care or a skilled facility. He states "I just need something for a couple of weeks." TERESA for [facility] inpatient rehab signed. I informed him that his insurance would need to authorize inpatient rehab prior to be admitted there. I called [facility] and spoke with Elzbieta. Elzbieta states as far as she knows, their are not any inpatient cardiac rehab facilities. I spoke with Kymberly Hopper her at [facility], cardiac rehab, and she states she does not know of any inpatient cardiac rehab units. Rehab prescreen ordered. He will need an OT and PT need for insurance to authorize inpatient rehab. CM will continue to follow and assist with discharge planning/needs. Continuous Absorption Process Operator: April Faith DCPIA - Discharge Planning Initial Assessment Updated by [email or web address]: April Faith on 12/09/19 3:47 pm * Is the patient Alert and Oriented? Yes * How many steps to enter\\exit or inside your home? 0/0 * PCP Dr. Esteves in [place] * Pharmacy [facility] in [place] * Preadmission Environment Home with Family * ADLs Independent * Equipment Catheter Supplies * List name and contact numbers for known caregivers / representatives who currently or will assist patient after discharge: Molly Sky - mother - [phone] * Verbal permission to speak to the caregivers and representatives has been obtained from the patient. Yes * Community resources currently utilized Home Health * Please name any agencies selected above. [facility] * Additional services required to return to the preadmission environment? No * Can the patient safely return to the preadmission environment? Yes * Has this patient been hospitalized within the prior 30 days at any hospital? Yes Coverage Notice Reviewer: [id number] Evan Faith Notice Issued Date-Time: 12/09/2019 15:42 Notice Type: Patient Choice Letter Notice Delivered To: Patient Relationship to Patient: Self Plastics Process Hand Name: Delivery Method: HAND - Hand Delivered Jessica Days: Prior Verbal Notification: Recipient Understood Notice: Yes Recipient Signature: Yes Med Rec Note Co-signed by Attending: Coverage Notice Comment: TERESA for inpatient rehab at [facility] or [facility] Reviewer: [id number] Evan Faith Notice Issued Date-Time: 12/16/2019 14:06 Notice Type: IM Discharge Notice Notice Delivered To: Patient Relationship to Patient: Self Plastics Process Hand Name: Delivery Method: HAND - Hand Delivered Jessica Days: Prior Verbal Notification: Recipient Understood Notice: Yes Recipient Signature: Yes Med Rec Note Co-signed by Attending: Coverage Notice Comment: IMM explained, signed, given, copy placed in MR Last DP export: 12/16/19 1:13 p Patient Name: ZEYNEP SKY Page [id number] at 0856 All edits/amendments must be made on the electronic document DICTATION DATE: 12/19/19854 RIBBON SWEATBAND OPERATOR: IVANA 12/19/19854 RPT#: [id number] DC DATE:12/16/19 STATUS: DIS IN [facility] [address] [place] [address] END OF REPORT
== END 2019-12-16 15:58 | DRG 291 ==
LOC: D.ER 13:04 → D.M2 16:15 → D.SDCHOLD 12-15 16:02 → D.M2 12-15 16:05
PROVIDERS: Family Medicine; ADMIT Family Medicine; ATTEND Family Medicine
DX: I13.0 Hypertensive heart and chronic kidney disease with heart failure and stage 1 through stage 4 chronic kidney disease, or unspecified chronic kidney disease (principal); I50.23 Acute on chronic systolic (congestive) heart failure; E87.1 Hypo-osmolality and hyponatremia; I48.20 Chronic atrial fibrillation, unspecified; N18.9 Chronic kidney disease, unspecified; D69.6 Thrombocytopenia, unspecified; N32.0 Bladder-neck obstruction; Z85.46 Personal history of malignant neoplasm of prostate

== ENCOUNTER 2019-12-16 16:22 | Inpatient (IN) | payer MEDICARE, MEDICAID ==
[~2019-12-16] VITALS: Ht 190.5 cm; Wt 122.5 kg
[~2019-12-16 16:22] MED LIST changes: +MELATONIN 3 MG1 TAB PO; +MIRALAX17 GM PO; +PROTONIX40 MG PO
[2019-12-16 16:55] VITALS: BP 102/69; BMI 33.8
--- NOTE | 2019-12-16 19:26 | NUR ---
RESTING IN BED WITH RESPIRAITONS SLIGHTLY LABORED AT REST. O2/2L ON PER NASAL CANNULA. GEORGE PATENT. DARK NIKOLAI URINE NOTED. CALL LIGHT IN REACH.
[2019-12-16 20:00] VITALS: BP 108/70
--- NOTE | 2019-12-17 01:36 | NUR ---
RESTING IN BED WITH RESPIRATIONS UNLABORED. NO DISTRESS NOTED.
--- NOTE | 2019-12-17 02:58 | NUR ---
REMAINS AWAKE RESTING IN BED. HAS NOT BEEN ASLEEP YET. STATES HE HAS HAD TROUBLE SLEEPING FOR PAST 2 WEEKS. IS ON MELATONIN BUT IT IS INEFFECTIVE. MESSAGE LEFT ON ROUNDING SHEET FOR DR STROUD.
[2019-12-17 03:53] LABS: BILIRUBIN NEGATIVE (NEGATIVE); GLUCOSE NEGATIVE (NEGATIVE); KETONE NEGATIVE (NEGATIVE); NITRITE NEGATIVE (NEGATIVE); RED CELLS - URINE 25-50 /hpf (0-5); SPECIFIC GRAVITY 1.015 (1.005-1.020); WHITE CELLS - URINE 0-5 /hpf (NEGATIVE)
--- NOTE | 2019-12-17 05:45 | NUR ---
C/O SHORTNESS OF BREATH, GRUNTING LOUDLY. O2 SATURATION 99% STATES HE THINKS IT WAS THE PROTONIX HE TOOK MAKING HIM SHORT OF BREATH. I EXPLAINED IT WAS FOR ACID REFLUX. PT CONTINUES TO INSIST HE HAS NEVER TAKEN IT BEFORE AND IT WAS CAUSING HIS SHORTNESS OF BREATH. I TOLD HIM MESSAGE WOULD BE LEFT FOR DR. HE VOICED UNDERSTANDING. SKIN WARM AND DRY HEARTRATE 69 O2/2L ON PER NASAL CANNULA. MESSAGE LEFT ON ROUNDING SHEET FOR DR STROUD.
--- NOTE | 2019-12-17 07:30 | NUR ---
A/A/OX4. HAS BEEN TO PT AND RETURNED TO ROOM. DENIES ANY PAIN BUT APPEARS SOB WITH 02 ON AT 2 L/M. PULSE OX READING 98%. AFTER SITTING ON SIDE OF BED AND RELAXING, HIS BREATHING BECAME MUCH LESS LABORED. NO REQUESTS VOICED. ASSISTED TO BEDSIDE CHAIR. GEORGE PATENT AND DRAINING BLOOD TINGED URINE. CALL LIGHT IN REACH AND WILL USED IF ASST IS NEEDED.
[2019-12-17 08:12] VITALS: BP 97/71
--- NOTE | 2019-12-17 12:00 | NUR ---
PT C/O SOB AND MAKING GRUNTING NOISES. V/S 112/51 71 20 02 SAT 100%. TALKED WITH PT AND ENCOURAGED HIM TO BREATH SLOWLY AND TRY TO CALM DOWN. AFTER JUST A FEW MINUTES PT CALMLED AND BREATHING BEDCAME NORMAL. STATES HE FEELS FINE NOW AND NO REQUESTS VOICED.
--- NOTE | 2019-12-17 13:43 | NUR ---
DR. SRTOUD IN TO SPEAK WITH PT ABOUT THE APPARENT "ANXIETY SPELLS" HE HAS BEEN HAVING. STARTED ON KLONOPIN AND FIRST DOSE GIVEN.
--- NOTE | 2019-12-17 14:35 | NUR ---
I have reviewed this patient and I concur with the Shift Assessment completed by the Licensed Practical Nurse today this shift.
[2019-12-17 16:59] VITALS: Ht 190.5 cm; Wt 122.5 kg
--- NOTE | 2019-12-17 17:31 | NUR ---
STATES HE IS FEELING SO MUCH BETTER SINCE TAKING THE KLONOPIN TODAY. NO FURTHER "ANXIETY SPELLS" TODAY.
--- NOTE | 2019-12-17 19:25 | NUR ---
SITTING UP IN CHAIR WATCHING TV. ALERT AND ORIENTED X4. ANXIOUS. RESP IRREG. SOB NOTED. O2 @ 2L/NC. GEORGE CATH PATENT AND DRAINING CLOUDY YELLOW URINE THAT IS BLOOD TINGED. TELEMETRY SHOWS SR WITH RATE OF 70. 3+ PITTING EDEMA NOTED TO BLE. DENIES PAIN. NONPROD COUGH NOTED. NO IV ACCESS. ABRASION NOTED TO RT ELBOW, BANDAID APPLIED DUE TO OOZING OF BLOOD. AMB WITH WALKER WITH ASSIST. CL IN REACH. DRSG NOTED TO LT INNER BUTTOCK STAGE 2.
[2019-12-17 20:09] VITALS: BP 95/64
--- NOTE | 2019-12-17 21:48 | NUR ---
DURING MED PASS TOPROL WAS HELD DUE TO LOW B/P. PT STATES HE ISNT EVEN SUPPOSED TO BE TAKING IT. ASKING ABOUT NEW MED, KLONOPIN. PT BEGANS HAVING WHAT APPEARS TO BE ANXIETY ATTACK AFTERWARDS, SOB, ANXIOUS, PANICKING. ENCOURAGED TO SLOW BREATHING DOWN, RELAXATION TECHNIQUES AND TO LISTEN TO CALMING MUSIC. HE VERBALIZED UNDERSTANDING. CL IN REACH
--- NOTE | 2019-12-18 00:49 | NUR ---
RESTING WITH EYES CLOSED. HOB ELEVATED. RESP NONLABORED. NO DISTRESS. CL IN REACH. BED ALARM IN USE FOR PT SAFETY.
--- NOTE | 2019-12-18 02:45 | NUR ---
HOB ELEVATED. RESTING WITH EYES CLOSED. RESP NONLABORED. O2 @ 2L/NC. NO DISTRESS. CL IN REACH. BED ALARM ON
--- NOTE | 2019-12-18 05:14 | NUR ---
PT REFUSED PROTONIX THIS A.M. STATES HE HAD A "REACTION" TO IT YESTERDAY. SEE NURSES NOTES FROM YESTERDAY A.M.
--- NOTE | 2019-12-18 07:29 | NUR ---
POSITIONED ON BACK WITH HOB ELEVATED 30 DEGREES, EYES CLOSED AND RESP EVEN AND UNLABORED WITH NO DISTRESS NOTED. SIDERAILS UP X 2, CALL LIGHT IN REACH AND BED IN LOW LOCKED POSITION. GEORGE PATENT AND DRAINING NIKOLAI COLORED URINE. BED ALARM IN USE.
[2019-12-18 08:15] VITALS: BP 101/64
--- NOTE | 2019-12-18 14:50 | NUR ---
SITTING UP IN CHAIR AT BEDSIDE. DENIES GOLDEN PAIN OR DISCOMFORT. RESP EVEN AND UNLABORED. NOT REQUESTS VOICED,
--- NOTE | 2019-12-18 15:00 | NUR ---
I have reviewed this patient and I concur with the Shift Assessment completed by the Licensed Practical Nurse today this shift.
--- NOTE | 2019-12-18 17:26 | NUR ---
HAS HAD "PANIC ATTACK" X 3 TODAY. EACH TIME JUST TELLING HIM TO BREATHE SLOWLY THROUGH HIS NOSE AND EXHALE THROUGH HIS MOUTH AND HE SOON CALMS DOWN. PULSE OX EACH TIME IS 96-100%. STATES HE FEELS THOUGH HE IS CONFUSED AND CANNOT REMEMBER HOW TO DIAL HIS PHONE.
--- NOTE | 2019-12-18 19:35 | NUR ---
SITTING UP IN RECLINER WITH LEGS ELEVATED. 4+ PITTING EDEMA NOTED TO BLE. ALERT AND ORIENTED BUT CONFUSED AT TIMES. VERY ANXIOUS. PREOCCUPIED WITH HIS MEDS. HAS PANIC ATTACK AND STARTS HYPERVENTILATING AND COUGHING. ENCOURAGED SLOW, DEEP BREATHS. O2 @ 2LNC. SOB. NONPROD COUGH. CHRONIC GEORGE WITH CLOUDY YELLOW URINE NOTED. TELEMETRY IS PACED WITH RATE OF 70. STAGE 2 NOTED TO LT INNER BUTTOCK WITH DRSG INTACT. BRUISES NOTED TO BUE. BANDAID NOTED TO RT ARM ABRASION. AMB WITH WALKER WITH STANDBY ASSIST X1. NO IV ACCESS. DENIES PAIN CL IN REACH.
[2019-12-18 20:10] VITALS: BP 104/73
--- NOTE | 2019-12-18 21:20 | NUR ---
REFUSES TO TAKE TOPROL. STATES IT CAUSES SEIZURES. HESITANT TO TAKE LUNESTA. STATES, "WHY DO I HAVE TO TAKE ALL THESE PILLS? AM I GOING TO WAKE UP AFTER I TAKE THEM?" ASSISTED BACK TO BED. HOB ELEVATED. O2 IN USE. SR ELEVATED X2. ENCOURAGED RELAXATION. TV TURNED OFF. MUSIC STARTED ON CELL PHONE TO ASSIST WTIH RELAXATION. CL IN REACH.
--- NOTE | 2019-12-19 01:24 | NUR ---
LYING IN BED WITH EYES CLOSED. JUST NOW SEEMS TO BE FALLING ASLEEP. RESP NONLABORED. NO DISTRESS. CL IN REACH. BED ALARM ON.
--- NOTE | 2019-12-19 04:10 | NUR ---
RESTED WELL AFTER MIDNIGHT BUT AWAKE AT THIS TIME. NO DISTRESS. DENIES NEEDS. CL IN REACH.
[2019-12-19 07:25] LABS: BASOPHILS 0.9 % (0-2); EOSINOPHILS 1.9 % (0-7); HEMATOCRIT 36.1 % (42.0-54.0); HEMOGLOBIN 11.6 g/dL (13.5-17.5); IMMATURE GRANULOCYTES 0.2 % (0-5); LYMPHOCYTES 16.4 % (15-50); MCH 26.4 pg (26.0-34.0); MCHC 32.1 g/dL (31.0-37.0); MCV 82.2 fL (80.0-100.0); MEAN PLATELET VOLUME 12.3 fL (7.4-10.4); MONOCYTES 11.7 % (2-11); NEUTROPHILS 68.9 % (40-80); PLATELET COUNT 169 10x3/uL (130-400); RBC 4.39 10x6/uL (4.20-6.10); RDW 16.1 % (11.5-14.5); WBC 4.3 10x3/uL (4.8-10.8)
[2019-12-19 07:38] VITALS: BP 104/67
[2019-12-19 07:41] LABS: ANION GAP 9.9 mmol/L (8-16); CALCIUM 8.6 mg/dL (8.5-10.1); CREATININE - SERUM 1.8 mg/dL (0.6-1.3); POTASSIUM - SERUM 3.9 mmol/L (3.5-5.1)
--- NOTE | 2019-12-19 08:00 | NUR ---
SITTING UP IN BED WATCHING TV, V/S AND ASSESSMENT COMPLETE, DENIES ANY NEEDS AT THIST TIME, O2 RUNNING AT 2LPM, C/L AND FLUIDS IN REACH.
--- NOTE | 2019-12-19 12:02 | NUR ---
SITTING UP IN CHAIR, O2 RUNNING AT 2 LPM VIA N/C, DENIES ANY NEEDS AT THIS TIME, C/L AND FLUIDS IN REACH.
--- NOTE | 2019-12-19 17:06 | NUR ---
SITTING UP IN CHAIR, O2 RUNNING AT 2 LPM VIA N/C SPO2 100%, PATIENT ANXIOUS STATING CAN'T BREATH. CALMED PT. DOWN GOT BREATHING PATTERN SLOWED DOWN PT. DENIES ANY OTHER NEEDS AT THIS TIME, C/L AND FLUIDS IN REACH.
--- NOTE | 2019-12-19 19:20 | NUR ---
PT SITTING UP IN RECLINER, ASSESSMENT PER FLOW SHEET, VS OBTAINED PER JOURNEYMAN PLUMBER, PT REPORTS FLATUS, BM TODAY, GEORGE CATH INTACT DRAINING DARK YELLOW URINE, PT DENIES NEEDS OR PAIN AT THIS TIME
--- NOTE | 2019-12-19 20:33 | NUR ---
PT RESTING IN RECLINER WITH EYES CLOSED, RESP QUIET, NO DISTRESS NOTED, LEFT UNDISTURBED AT THIS TIME
[2019-12-19 21:45] VITALS: BP 104/68
--- NOTE | 2019-12-19 21:50 | NUR ---
PT SITTING UP IN RECLINER, PT REPORTS BEING "A LITTLE" UPSET OVER MEDICATIONS, THIS RN HAD JENIFER, RN, CHARGE NURSE COME INTO ROOM AND TALKE TO PT, PT FINALLY VERBALIZES UNDERSTANDING, PT TO BED, WILL ADM MEDS, FRESH H20 SERVED
--- NOTE | 2019-12-19 22:07 | NUR ---
ADM 2100 MEDS PER MD ORDERS, SEE EMAR, PT DENIES FURTHER NEEDS, BED IN LOW POSITON, SIDE RAILS X 2, CALL LIGHT IN REACH
--- NOTE | 2019-12-19 22:50 | NUR ---
PT SPORTS EQUIPMENT REPAIRER LIGHT, REQUESTED AND SERVED [facility] [place] [facility], DENIES FURTHER NEEDS
--- NOTE | 2019-12-20 00:27 | NUR ---
PT RESTING WITH EYES CLOSED, RESP QUIET, NO DISTRESS NOTED, LEFT UNDISTURBED AT THIS TIME, BED IN LOW POSITION, SIDE RAILS X 2, CALL LIGHT IN REACH, BED ALARM ON AND WORKING PROPERLY
--- NOTE | 2019-12-20 04:40 | NUR ---
PT AWAKE, REPORTS "RESTING VERY WELL", REQUESTED AND PROVIDED CUP FOR SPIT, GEORGE CATH EMPTIED, PT DENIES FURTHER NEEDS OR PAIN AT THIS TIME, BED IN LOW POSITION, SIDE RAILS X 2, CALL LIGHT IN REACH
--- NOTE | 2019-12-20 05:22 | NUR ---
PT AWAKE, PT REFUSES PROTONIX, REQUESTED AND SERVED CRANBERRY JUICE, DENIES FURTHER NEEDS, TRASH REMOVED, BED IN LOW POSITION, SIDE RAILS X 2, CALL LIGHT IN REACH
[2019-12-20 07:30] VITALS: BP 103/65
--- NOTE | 2019-12-20 07:30 | NUR ---
AWAKE,VS TAKEN AND ASSESSMENT COMPLETED.O2,2L/MIN PER NC INTACT.RESP.RAPID AND SHALLOW UPON FIRST ASSESSING BUT SLOWS AFTER TALKING WITH HIM.ENCOURAGE SLOW DEEP BREATHS.CL IN EASY REACH,BED IN LOW POSITION.WILL CONTINUE WITH CURRENT PLAN OF CARE.
--- NOTE | 2019-12-20 11:10 | NUR ---
C/O "I AM HAVING ANOTHER ONE OF THOSE THINGS AGAIN,A PANIC ATTACK".ENCOURAGED TO TAKE DEEP BREATHS THROUGH THE NOSE AND BREATH OUT SLOWLY THROUGH PURSED LIPS.GUIDED HIM THROUGH BREATHING EXERCISES WITH GOOD RESPONSE.ENCOURAGED TO TURN NEWS OFF FOR AWHILE,HE COMPLIED.SITTING UP IN BEDSIDE CHAIR,CALL LIGHT IN EASY REACH.
--- NOTE | 2019-12-20 12:59 | NUR ---
Nutrition Follow-up: Diet: Cardiac PO intake: ~48% average x last 9 meals (varied 0-100%); he states appetite is "not so good today." He wants to get Ensure on meal trays. Last BM: 12/19/19. WT: 270# (12/17/19) Meds and labs reviewed Skin: stage II PU to L buttocks Recommend continue current diet. Will add Ensure TID with meals. RD following.
--- NOTE | 2019-12-20 19:40 | NUR ---
PT SITTING UP IN RECLINER AT THIS TIME, ASSESSMENT PER FLOW SHEET, VS OBTAINED PER FLORIST'S DECORATOR, GEORGE CATH INTACT DRAINING DARK YELLOW URINE, PT REPORTS FLATUS, AND NO BM TODAY, DISCUSSED WITH PT REGARDING 2100 MEDS, PT VERBALIZES UNDERSTANDING, PT DENIES NEEDS OR PAIN AT THIS TIME
--- NOTE | 2019-12-20 21:00 | NUR ---
ASSISTED PT WITH TRANSFER FROM CHAIR TO BED WITH SBA. ALERT AND ORIENTED X4. DENIES ANY PAIN OR NEEDS. CONTINUES ON 3L VIA NC. BLE +3 EDEMA ELEVATED BLE. HOB ELEVATED 35 DEGREES. GEORGE PATENT FREE FROM KINKS. CALL LIGHT WITHIN REACH. FALL PRECAUTIONS IN PLACE. CPOC
[2019-12-20 21:55] VITALS: BP 98/69
--- NOTE | 2019-12-20 23:20 | NUR ---
PT SITTING UP ON SIDE OF BED RESTLESS. PT STATES HE CAN'T SLEEP. PT SEEMS ANXIOUS AND RESTLESS. DENIES ANY NEEDS OR PAIN. NO SIGNS OF RESPIRATORY DISTRESS. VS STABLE. CALL LIGHT WITHIN REACH. BED ALARM ON. WILL CONTINUE TO MONITOR
--- NOTE | 2019-12-21 01:16 | NUR ---
PT LYING IN BED EYES CLOSED RESTING QUIETLY. HOB ELEVATED. RR EVEN AND UNLABORED. CALL LIGHT WITHIN REACH. BED ALARM ON. CPOC
--- NOTE | 2019-12-21 04:46 | NUR ---
PROVIDED PT WITH SHOWER SET UP. PT WAS ABLE TO SHOWER WITHOUT ASSISTANCE. DENIES ANY OTHER NEEDS. 700ML BLOOD TINGED URINE EMPTIED FROM GEORGE. CALL LIGHT WITHIN REACH. FALL PRECAUTIONS IN PLACE. CPOC
[2019-12-21 07:45] LABS: BASOPHILS 0.9 % (0-2); HEMATOCRIT 36.6 % (42.0-54.0); HEMOGLOBIN 12.2 g/dL (13.5-17.5); IMMATURE GRANULOCYTES 0.2 % (0-5); LYMPHOCYTES 18.3 % (15-50); MCH 26.9 pg (26.0-34.0); MCHC 33.3 g/dL (31.0-37.0); MCV 80.8 fL (80.0-100.0); MEAN PLATELET VOLUME 11.4 fL (7.4-10.4); MONOCYTES 12.1 % (2-11); NEUTROPHILS 66.5 % (40-80); PLATELET COUNT 159 10x3/uL (130-400); RBC 4.53 10x6/uL (4.20-6.10); WBC 4.5 10x3/uL (4.8-10.8)
[2019-12-21 07:46] LABS: CALCIUM 8.5 mg/dL (8.5-10.1); CARBON DIOXIDE 28.8 mmol/L (21.0-32.0); CREATININE - SERUM 1.9 mg/dL (0.6-1.3); POTASSIUM - SERUM 3.8 mmol/L (3.5-5.1)
[2019-12-21 08:42] VITALS: BP 118/70
--- NOTE | 2019-12-21 09:48 | NUR ---
HAS BEEN SITTING UP IN WC AND WORKING WITH THERAPY. DENIES INCREASED SOB AT PRESENT.
--- NOTE | 2019-12-21 11:05 | NUR ---
CLINICAL UPDATES FAXED TO [facility] , AUTH. # [id number] WITH A TENATIVE DISCHARGE DATE BEING 12/27/19.WILL CONTINUE TO FOLLOW WITH PATIENT.
--- NOTE | 2019-12-21 11:20 | NUR ---
PATIENT ADMITTED TO REHAB FROM ACUTE FLOOR. DR. WETZEL IN [place] IS PATIENT PCP. DISCHARGE PLANS ARE FOR HIM TO RETURN HOME WITH FAMILY. PATIENT SIGNED TERESA WITH [facility]. WILL CONTINUE TO FOLLOW WITH PATIENT.
--- NOTE | 2019-12-21 13:04 | NUR ---
SITTING UP IN RECLINER IN ROOM. OXYGEN ON, TV ON. SEEMS SLIGHTLY ANXIOUS. F/C PATENT
--- NOTE | 2019-12-21 14:51 | NUR ---
CARE TEAM MEETING: SPOKE WITH PATIENT REGARDING DISCHARGE , AT THIS TIME HE WOULD LIKE TO DISCHARGE TO A SNF CLOSER TO HIS HOME. WILL MAKE A REFERRAL TO [facility] TENATIVE DISCHARGE DATE IS 12/27/19. CLINICAL UPDATES FAXED TO [facility] AT , AUTH. # [id number]. WILL CONTINUE TO FOLLOW WITH PATIENT.
--- NOTE | 2019-12-21 20:08 | NUR ---
AWAKE AND ALERT. SITTING IN WHEELCHAIR. GEORGE PATENT. TELEMETRY ON. NO ACUTE DISTRESS NOTED.
[2019-12-21 21:16] VITALS: BP 105/71
--- NOTE | 2019-12-22 00:34 | NUR ---
RESTING IN BED WITH RESPIRATIONS UNLABORED.
--- NOTE | 2019-12-22 03:09 | NUR ---
SITTING IN CHAIR IN ROOM. RESPIRATIONS UNLABORED. O2/3L ON PER NASAL CANNULA. GEORGE PATENT.
--- NOTE | 2019-12-22 03:51 | NUR ---
CALLED NURSE TO ROOM AND PATIENT STATES HE WAS DUE HIS "CONVULSANT MEDICINE" PATIENT IS NOT HAVING CONVULSIONS. HE IS HAVING ANXIETY. HE SAID, "YES ANXIETY" I EXPLAINED THAT IT WAS NOT TIME FOR HIS [place] THAT IT IS SCHEDULED 9AM AND 9PM. HE STATED "NO YOU GAVE ME 4 LAST NIGHT" I SAID, NO SIR I DID NOT GIVE YOU 4 LAST NIGHT, I GAVE YOU ONE DOSE SCHEDULED. HE THEN STATED "NO I MEAN HE(THE DOCTOR SAID I WAS SUPPOSE TO HAVE 4" I EXPLAINED THAT NO HE WAS ONLY SUPPOSE TO HAVE ONE. HE THEN SAID "NO I MEAN 4 TIMES" I ASK "YOU MEAN FOUR TIMES A DAY?" HE SAID "YES" I SAID "NO SIR IT IS ONLY SCHEDULED TWICE A DAY" HE THEN REPLIED "THEN YALL KEEP CHANGING IT" I SAID "NO SIR IT HAS ALWAYS BEEN TWICE A DAY AT 9AM AND 9PM" I STATED THAT I COULD LET THE DOCTOR KNOW HE WAS STILL HAVING ANXIETY. HE STATED "OKAY"
--- NOTE | 2019-12-22 05:03 | NUR ---
C/O STOMACH PAIN AND CONTINUES TO C/O ANXIETY. PROTONIX AND ZOFRAN GIVEN PO. INFORMED PATIENT THAT MESSAGE LEFT ON ROUNDING SHEET FOR DOCTOR.
[2019-12-22 07:44] VITALS: BP 92/58
--- NOTE | 2019-12-22 08:38 | NUR ---
RESTING IN CHAIR, O2 RUNNING AT 3 LPM, DENIES ANY NEEDS AT THIS TIME, HELD BLOOD PRESSURE D/T LOW READING OF 92/58. V/S AND ASSESSMENT COMPLETE, C/L AND FLUIDS IN REACH.
--- NOTE | 2019-12-22 12:00 | NUR ---
SITTING UP IN CHAIR, DENIES ANY NEEDS AT THIS TIME, O2 RUNNING AT 3LPM VIA N/C, C/L AND FLUIDS IN REACH.
--- NOTE | 2019-12-22 13:00 | NUR ---
I have reviewed this patient and I concur with the Shift Assessment completed by the Licensed Practical Nurse today this shift.
--- NOTE | 2019-12-22 16:00 | NUR ---
SITTING UP IN CHAIR, DENIES ANY NEEDS AT THIS TIME, O2 RUNNING AT 2 LPM VIA N/C, C/L AND FLUIDS IN REACH.
--- NOTE | 2019-12-22 22:15 | NUR ---
REPORT RECEIVED. PT DISORIENTED TO TIME, REORIENTED NEEDED. NO ACUTE DISTRESS NOTED AT THIS TIME. ASSESSMENT COMPLETED, SEE FLOWSHEET.
--- NOTE | 2019-12-22 23:00 | NUR ---
PT RESTING QUIETLY. WILL CONTINUE TO MONITOR.
--- NOTE | 2019-12-23 01:00 | NUR ---
NO ACUTE DISTRESS NOTED AT THIS TIME. WILL CONTINUE TO MONITOR.
--- NOTE | 2019-12-23 03:00 | NUR ---
PT RESTING IN BED, NO ACUTE DISTRESS NOTED.
[2019-12-23 07:01] LABS: BASOPHILS 0.5 % (0-2); EOSINOPHILS 2.1 % (0-7); HEMATOCRIT 35.3 % (42.0-54.0); HEMOGLOBIN 11.2 g/dL (13.5-17.5); LYMPHOCYTES 18.4 % (15-50); MCHC 31.7 g/dL (31.0-37.0); MCV 82.1 fL (80.0-100.0); MEAN PLATELET VOLUME 12.2 fL (7.4-10.4); MONOCYTES 8.6 % (2-11); NEUTROPHILS 70.4 % (40-80); PLATELET COUNT 174 10x3/uL (130-400); RDW 16.1 % (11.5-14.5); WBC 4.3 10x3/uL (4.8-10.8)
[2019-12-23 07:18] LABS: ANION GAP 8.8 mmol/L (8-16); CALCIUM 8.4 mg/dL (8.5-10.1); CARBON DIOXIDE 30.3 mmol/L (21.0-32.0); CREATININE - SERUM 1.9 mg/dL (0.6-1.3); POTASSIUM - SERUM 4.1 mmol/L (3.5-5.1)
[2019-12-23 07:28] VITALS: BP 94/55
--- NOTE | 2019-12-23 07:30 | NUR ---
SITTING UP IN BED WATCHING TV, DENIES ANY NEEDS AT THIS TIME, V/S AND ASSESSMENT COMPLETE, C/L AND FLUIDS IN REACH.
--- NOTE | 2019-12-23 11:40 | NUR ---
REFERRAL HAS BEEN FAXED TO [facility] WITH COVID TEST PENDING. WILL CONTINUE TO FOLLOW WITH PATIENT. TENATIVE DISCHARGE DATE 12/27/19.
--- NOTE | 2019-12-23 12:26 | NUR ---
SITTING UP IN BED EATING LUNCH, DENIES ANY NEEDS AT THIS TIME, C/L AND FLUIDS IN REACH.
--- NOTE | 2019-12-23 14:07 | NUR ---
Nutrition Follow-up: Diet: Cardiac + Ensure TID PO intake: ~58% average x last 9 meals; he reports that his appetite is much better today, he had eaten most of his lunch tray. States that he is drinking Ensure with meals. Last BM: 12/21/19. WT: 270# (12/17/19), no new weight Meds noted: miralax, lasix. Labs noted: GFR 46(L), BUN 28(H), Cr 1.9(H) Skin: stage II PU to L buttocks Needs new weight. Recommend continue current diet and oral nutrition supplements. RD following.
--- NOTE | 2019-12-23 16:00 | NUR ---
UP WITH THERAPY, DENIES ANY NEEDS AT THIS TIME.
--- NOTE | 2019-12-23 19:30 | NUR ---
PT IS SITTING UP IN CHAIR WATCHIGN TV. HE IS A&OX4. VOICES "NO" TO ANY PAIN. HE REQUEST A WARM BLANKET WHICH I PROVIDE. HIS VSS. PERFORMED FULL ASSESSMENT ADN WILL DOC IN FLOW SHEET. HIS CHAIR WHEELS ARE LOCKED, CALL LIGHT WITHIN REACH. WILL CONITUE TO MONITOR
--- NOTE | 2019-12-23 21:10 | NUR ---
PT IS SITTING UP IN CHAIR WITH EYES CLOSED. VSS. RR NOTED AND SKIN IS WARM AND APPROPRIATE FOR ETHNICITY. CHAIR WHEELS ARE LOCKED, CALL LGIHT IS WITHIN REACH. WILL CONTINUE TO MONITOR
[2019-12-23 22:05] VITALS: BP 97/59
--- NOTE | 2019-12-23 23:04 | NUR ---
PT IS SITTING UP IN HIS CHAIR WITH EYE CLOSED. AWAKES EASILY. I ENCOURAGE HIM TO LAY IN HIS BED TO HELP WITH THE SWELLING IN HIS FEET AND HE VOICES"NO I SLEEP BETTER IN THE CHAIR". NO C/O OR NEEDS VOICED. CHAIR IS LOCKED, CALL LIGHT WITHIN REACH. WILL CONINTUE TO MONITOR
--- NOTE | 2019-12-24 01:13 | NUR ---
PT IS SITTING UP IN CHAIR WITH FEET ELEVATED. HE ASK "CAN I HAVE A PUDDING". PROVIDED HIM WITH A PUDDING PER REQUEST. HE VOICES NO OTHER NEEDS OR COMPLAINTS. CHAIR IS LOCKED, CALL LIGHT WITHIN REACH. WILL CONITNUE TO MONITOR
--- NOTE | 2019-12-24 03:00 | NUR ---
PT IS SITTING UP IN CHAIR WITH EYES CLOSED AND FEET ELEVATED. RR ARE EQUAL AND UNLABORED. SKIN IS WARM AND PINK. CHAIR WHEELS ARE LOCKED. CALL LGIHT WITHIN REACH. WILL CONINTUE TO MONITOR
--- NOTE | 2019-12-24 04:58 | NUR ---
PT IS RESTING IN CHAIR WITH EYES CLOSED. RR ARE EQUAL AND UNLABORED. HE VOICES"NO" TO ANY PAIN OR NEEDS AT THIS TIME. CHAIR IS LOCKED, CALL LIGHT WITHIN REACH. WILL CONTINUE TO MONITOR
--- NOTE | 2019-12-24 06:26 | NUR ---
PT IS RESTING IN CHAIR WATCHING TV. VOICES"IM DOING OK". VOICES "NO" TO PAIN OR NEEDS AT THIS TIME. CHAIR IS LOCKED. CALL LIGHT WITHIN REACH. WILL CONTINUE TO MONITOR
[2019-12-24 06:41] LABS: CALCIUM 8.8 mg/dL (8.5-10.1); CREATININE - SERUM 1.9 mg/dL (0.6-1.3)
--- NOTE | 2019-12-24 07:45 | NUR ---
AWAKE AND ALERT UP IN CHAIR, O2 RUNNING AT 2 LPM, DENIES ANY NEEDS AT THIS TIME, C/L AND FLUIDS IN REACH, V/S AND ASSESSMENT COMPLETE.
--- NOTE | 2019-12-24 11:55 | NUR ---
UP IN CHAIR WATCHING TV, DENIES ANY NEEDS AT THIS TIME, C/L AND FLUIDS IN REACH.
[2019-12-24 12:07] VITALS: BP 101/61
--- NOTE | 2019-12-24 16:03 | NUR ---
SITTING UP IN CHAIR WATCHING TV, DENIES ANY NEEDS AT THIS TIME, C/L AND FLUIDS IN REACH.
--- NOTE | 2019-12-24 19:00 | NUR ---
BEDSIDE REPORT COMPLETE. PT SITTING UP IN CHAIR. ALERT AND ORIENTED X4. DENIES ANY NEEDS OR PAIN. GEORGE CATH PATENT AND FREE FROM KINKS. BLOOD TINGED URINE NOTED. CALL LIGHT WITHIN REACH. FALL PRECAUTIONS IN PLACE. CPOC
[2019-12-24 20:45] VITALS: BP 88/53
[2019-12-24 22:05] VITALS: BP 97/71
--- NOTE | 2019-12-24 23:43 | NUR ---
PT SITTING UP IN CHAIR TALKING ON PHONE. DENIES ANY NEEDS OR PAIN. 1800ML CONCENTRATED URINE EMPTIED FROM GEORGE. CALL LIGHT WITHIN REACH. FALL PRECAUTIONS IN PLACE. WILL CONTINUE TO MONITOR
--- NOTE | 2019-12-25 01:24 | NUR ---
PT SITTING UP IN RECLINER. DENIES ANY NEEDS OR PAIN. NO SIGNS OF ACUTE DISTRESS NOTED. CALL LIGHT WITHIN REACH. FALL PRECAUTIONS IN PLACE. CPOC
--- NOTE | 2019-12-25 04:26 | NUR ---
PT SITTING UP IN RECLINER WATCHING TV. DENIES ANY NEEDS OR PAIN. 1300ML CONCENTRATED URINE EMPTIED FROM GEORGE. CALL LIGHT WITHIN REACH. FALL PRECAUTIONS IN PLACE. CPOC
--- NOTE | 2019-12-25 06:53 | NUR ---
PT SITTING UP IN RECLINER. DENIES ANY NEEDS OR PAIN. RR EVEN AND UNLABORED. CALL LIGHT WITHIN REACH. FALL PRECAUTIONS IN PLACE. WILL CONTINUE TO MONITOR
[2019-12-25 10:09] VITALS: BP 103/62
--- NOTE | 2019-12-25 19:08 | NUR ---
BEDSIDE REPORT COMPLETE. PT SITTING UP IN RECLINER. ALERT AND ORIENTED X4. DENIES ANY NEEDS OR PAIN. GEORGE PATENT FREE FROM KINKS. URINE NIKOLAI IN COLOR NOTED IN BAG. O2 SAT 95% ON ROOM AIR. CALL LIGHT WITHIN REACH. FALL PRECAUTIONS IN PLACE. CPOC
[2019-12-25 20:50] VITALS: BP 100/61
--- NOTE | 2019-12-25 23:59 | NUR ---
PT SITTING UP IN RECLINER. DENIES ANY NEEDS OR PAIN. CALL LIGHT WITHIN REACH. FALL PRECAUTIONS IN PLACE. CPOC
--- NOTE | 2019-12-26 02:30 | NUR ---
PT SITTING UP IN RECLINER EYES CLOSED RESTING QUIETLY. RR EVEN AND UNLABORED. CALL LIGHT WITHIN REACH. FALL PRECAUTIONS IN PLACE. CPOC
--- NOTE | 2019-12-26 07:16 | NUR ---
A/A/0X4. DEMIES ANY PAIN OR DISCOMFORT AND VOICES NO REQUESTS. SITTING UP IN BEDSIDE CHAIR. NO RESP DISTRESS NOTED. CALL LIGHT AND FLUIDS IN REACH.
--- NOTE | 2019-12-26 07:40 | RHP ---
PATIENT: ZEYNEP SKY JR MEDICAL RECORD: [id number] ACCOUNT: [id number] LOCATION:[facility]1115 : 54 ADMISSION DATE: 12/16/19 REHABILITATION HISTORY AND PHYSICAL EXAMINATION POST ADMISSION PHYSICIAN EXAMINATION ADMITTING DIAGNOSIS: Congestive heart failure induced myopathy. HISTORY OF PRESENT ILLNESS: The patient is a 69-year-old morbidly obese gentleman who presented to the ED with increasing shortness of breath and progressive generalized weakness. The patient was seen and evaluated in the Emergency Room. He has got a history of CHF with an EF of approximately 15%. He has got cardiomyopathy. He has hypertension, aortic insufficiency, renal insufficiency, and prostate cancer. He currently has an indwelling catheter at this time. The patient sees Dr. Tesfaye, his urologist in [place] and he has bladder neck stenosis. He has been discharged and readmitted to this facility 2 times in the last 2 weeks prior to his acute hospital stay for symptoms complication of heart failure. The patient had a cardiology consult here and had a ALVA and also cardioversion on 12/13/2019 and converted successfully out of atrial fibrillation. He has continued to be monitored on telemetry with normal sinus rhythm. He has got first-degree AV block. He has been receiving physical and occupational therapy during his stay. He has had a prolonged hospital stay, progressive generalized weakness, recent hospitalization. He is being monitored on telemetry and his recent cardioversion. He has got to be placed on anticoagulant therapy. He has got balance deficits, decreased activity tolerance. He has got impaired mobility, decreased quality of life, decreased range of motion, gait disturbance, limited safety awareness. He has medical complexity for falls. He needs cues for equipment, low endurance, unsteady gait and balance. He fatigues easily, currently set up for mod assist for his ADLs and mod assist for mobility with use of supplemental oxygen. He does desat with exertion. He plans to return home at his prior level of functioning or better. COMORBIDITIES: Include morbid obesity with BMI greater than 39. He has got end-stage congestive heart failure, prostate cancer, got a history of [id number]-[id number] systolic heart failure, hyponatremia, decompensated CHF, chronic renal disease, uncontrolled AFib, weakness. PAST MEDICAL HISTORY: Significant for CHF, hypertension, prostate problems, prostate cancer, tobacco use. PAST SURGICAL HISTORY: Includes surgery on his prostate. ALLERGIES: FLOMAX. CURRENT MEDICATIONS: Include digoxin 0.25 on Thursday, Thursday and Thursday. He is on simvastatin 40 mg daily. He is on polyethylene glycol 17 grams in 8 ounces of water daily. He is on atorvastatin 20 mg daily. He is on aspirin chewable 81 mg daily. He is on Protonix 40 mg daily. He is on Zofran 4 mg daily, metoprolol 25 mg b.i.d., melatonin 9 mg daily, furosemide 40 mg t.i.d., amiodarone 200 mg t.i.d. He is on Xarelto 20 mg with dinner and Tylenol p.r.n. HABITS: He does have a history of tobacco use in the past. FAMILY HISTORY: Noncontributory. HISTORY AND PHYSICAL [id number] ZEYNEP SKY JR SOCIAL HISTORY: The patient hopes to return back home and get back to his prior level of functioning. REVIEW OF SYSTEMS: GENERAL: Does complain of weakness and fatigue. HEENT: Denies cold, cough, or congestion. CARDIOVASCULAR: Denies any chest pain. LUNGS: Does complain of shortness of breath with any type of activity. PHYSICAL EXAMINATION: VITAL SIGNS: Stable, afebrile. GENERAL: A morbidly obese gentleman, in no acute distress, alert upon exam. HEENT: Normocephalic and atraumatic. Mucosa moist. NECK: Supple. No lymphadenopathy. LUNGS: Clear at this time in upper plasencia. CARDIOVASCULAR: Regular rate and rhythm. He does have a holosystolic murmur. ABDOMEN: Soft, benign, and nondistended. Positive bowel sounds times 4. EXTREMITIES: No clubbing, cyanosis. He does have peripheral edema. NEUROLOGIC: He is mainly intact. LABORATORY DATA: His admit UA did show blood. ASSESSMENT: This is a 69-year-old gentleman admitted to the rehab with a working diagnosis of congestive heart failure induced myopathy with an EF of 15%. The patient has potential to make improvement. We instituted the following multidisciplinary therapies including, but not limited to physical, occupational, respiratory, speech, nutritional services, prosthetics and orthotics. Given his complex medical condition and risk for more complications, rehabilitation services cannot be provided at a low level of care such a skilled nurse facility. PLAN: 1. Admit to [facility] for intensive inpatient therapy to include the following disciplines; A. Physical therapy to improve gait, all transfer skills and bed mobility to a modified independent level. B. Occupational therapy to improve activities of daily living. C. Case management to assist with discharge planning and placement options. D. Nutrition to assist with nutritional needs. E. Rehabilitation nursing to assist in monitoring the patient's underlying medical conditions and to assist with any type of bowel or bladder management. 2. The patient's current medication and medical care will be continued. 3. The patient will be placed on standard fall precautions. 4. We will keep on a proton pump inhibitor for GI prophylaxis. He is currently on a blood thinner, Xarelto. 5. I am going to see again in the a.m. TRANSINT:[id number] Voice Confirmation ID: [id number] DOCUMENT ID: [id number] VY notes whether there has been none or any medical/functional change since admission: - No change since prescreen. HISTORY AND PHYSICAL [id number] ZEYNEP SKY JR attests patient continues to be appropriate for IRF: - Continues to be appropriate. JANNET STROUD MD at 0740 CC: [id number] DICTATION DATE: 12/17/19 1236 EMERGENCY MANAGEMENT PROGRAM SPECIALIST: 12/17/19 1408 ADM IN [place] [id number] [place] [address]
[2019-12-26 08:00] VITALS: BP 95/54
[2019-12-26 08:10] LABS: ANION GAP 7.2 mmol/L (8-16); CALCIUM 8.9 mg/dL (8.5-10.1); CARBON DIOXIDE 37.6 mmol/L (21.0-32.0); CREATININE - SERUM 1.7 mg/dL (0.6-1.3); POTASSIUM - SERUM 3.8 mmol/L (3.5-5.1)
[2019-12-26 08:40] LABS: HEMATOCRIT 38.1 % (42.0-54.0); HEMOGLOBIN 12.1 g/dL (13.5-17.5); LYMPHOCYTES 18.1 % (15-50); MCH 26.5 pg (26.0-34.0); MCHC 31.8 g/dL (31.0-37.0); MCV 83.4 fL (80.0-100.0); MEAN PLATELET VOLUME 12.1 fL (7.4-10.4); NEUTROPHILS 69.7 % (40-80); PLATELET COUNT 167 10x3/uL (130-400); RBC 4.57 10x6/uL (4.20-6.10); RDW 16.5 % (11.5-14.5); WBC 5.1 10x3/uL (4.8-10.8)
--- NOTE | 2019-12-26 19:45 | NUR ---
PATIENT RECEIVED SITTING UP IN CHAIR. ASSESSMENT & VITAL SIGNS DONE. NO C/O PAIN OR DISTRESS. GEORGE PATENT WITH CLEAR YELLOW URINE. CALL LIGHT WITHIN REACH. WILL CONTINUE TO MONITOR.
[2019-12-26 21:53] VITALS: BP 101/61
--- NOTE | 2019-12-26 23:00 | NUR ---
PATIENT GEORGE EMPTIED OF 100 CC OF CLEAR YELLOW URINE. PATIENT GIVEN TWO PUDDINGS FOR SNACK. CONTINUES TO SITUP IN CHAIR. CALL LIGHT WITHIN REACH. WILL CONTINUE TO MONITOR.
--- NOTE | 2019-12-27 02:34 | NUR ---
PATIENT USED CALL LIGHT. GEORGE CATHETER EMPTIED OF 1100 CC OF CLEAR URINE. CALL LIGHT WITHIN REACH. WILL CONTINUE TO MONITOR.
--- NOTE | 2019-12-27 02:35 | NUR ---
I have reviewed this patient and I concur with the Shift Assessment completed by the Licensed Practical Nurse today this shift.
[2019-12-27 08:00] VITALS: BP 98/75
--- NOTE | 2019-12-27 08:00 | NUR ---
AWAKE AND ALERT UP IN CHAIR, DENIES ANY NEEDS AT THIS TIME, C/L AND FLUIDS IN REACH.
--- NOTE | 2019-12-27 09:19 | NUR ---
SITTING UP IN CHAIR, ASSESSMENT COMPLETE, C/L AND FLUIDS IN REACH.
--- NOTE | 2019-12-27 10:26 | NUR ---
PATIENT DISCHARGING TO [facility] VIA FACILITY VAN.NO HOME HEALTH OR DME NEEDED AT THIS TIME. APPOINTMENTS WITH DR. WETZEL AND DR. JUAN R HALL WILL BE MADE AT TIME OF DISCHARGE FROM FACILITY. TERESA SIGNED, IMM SERVED AND EXPLAINED, ONE GIVEN TO PATIENT AND ONE FILED IN CHART. COMPARE DATA REVIEWED AND PATIENT VOICED UNDERSTANDING.DISCHARGE INSTRUCTIONG FAXED TO PCP, SNF AND [facility] AUTH. # [id number].
--- NOTE | 2019-12-27 11:15 | NUR ---
PATIENT D/C TO [facility]. ALL BELONGINGS WITH PATIENT. PATIENT LEFT VIA W/C WITH [facility] TRANSPORT. REVIEWED AND GAVE COPIES TO PATIENT OF ALL MEDICATIONS AND FOLLOW UP APPOINTMENTS. REPORT FOR PT. CALLED INTO [facility] NURSE.
== END 2019-12-27 11:15 | DRG 91 ==
LOC: D.REHAB 16:22
PROVIDERS: ADMIT Emergency Medicine; ATTEND Emergency Medicine
DX: G72.89 Other specified myopathies (principal); I50.23 Acute on chronic systolic (congestive) heart failure; I13.0 Hypertensive heart and chronic kidney disease with heart failure and stage 1 through stage 4 chronic kidney disease, or unspecified chronic kidney disease; E87.1 Hypo-osmolality and hyponatremia; I42.9 Cardiomyopathy, unspecified; N17.9 Acute kidney failure, unspecified; N18.9 Chronic kidney disease, unspecified; E66.01 Morbid (severe) obesity due to excess calories; I48.91 Unspecified atrial fibrillation; R53.1 Weakness; C61 Malignant neoplasm of prostate; I44.0 Atrioventricular block, first degree; R26.9 Unspecified abnormalities of gait and mobility; Z68.35 Body mass index [BMI] 35.0-35.9, adult; D69.6 Thrombocytopenia, unspecified; R33.9 Retention of urine, unspecified